=== PATIENT | male | born 1935 | race Caucasian/White ===

== ENCOUNTER 2023-05-17 10:47 | Day surgery (SDC) | payer MEDICARE, OTHER, SELFPAY ==
[2023-05-11 11:19] LABS: Hematocrit 40.4 % (40-54); Hemoglobin 13.1 g/dL (13.0-16.5); Mean Corp Hgb Conc 32.4 g/dL (32-36); Mean Corpuscular Hgb 31.6 pg (27.0-32.0); Mean Corpuscular Volume 97.6 fL (80-94); Mean Platelet Vol. 10.7 fl (6.2-12.0); Platelet Count 188 K/mm3 (150-450); RBC Distribution Width CV 13.2 % (11.6-14.6); RBC Distribution Width SD 46.7 fl (35.1-43.9); Red Blood Count 4.14 M/mm3 (4.6-6.2); White Blood Count 5.9 K/mm3 (4.4-11.0)
[2023-05-11 11:49] LABS: Anion Gap 2 (5-15); BUN 15 mg/dL (7-18); BUN/Creat Ratio 19.7 RATIO (10-20); Calcium,Total 8.9 mg/dL (8.5-10.1); Chloride 105 mmol/L (98-107); Creatinine, Serum 0.76 mg/dL (0.70-1.30); EST Glomerular Filtration Rate 103 mL/min (>60); Est Glom Filt Rate - Afr Amer 125 mL/min (>60); Glucose 91 mg/dL (74-106); Hemoglobin A1c 7.9 % (3.8-5.6); Potassium 3.9 mmol/L (3.5-5.1); Sodium Level 136 mmol/L (136-145)
--- OUTSIDE RECORDS SUMMARY | 2023-05-11 12:19 | XMS RPT_ITS | CCD ---
Author Name Unknown Address [id number] [place] [address] Organization [facility] Care Team Providers Care Overhead Line Worker Name Role Phone Kayla Spivey Unavailable Unavailable Sammy Howard Unavailable Unavailable Sammy Howard Unavailable Unavailable Kayla Spivey Unavailable Unavailable Kayla Spivey Unavailable Unavailable Kayla Spivey Unavailable Unavailable Deion Edward Unavailable Unavailable Melanie Xiao Unavailable Unavailable Kayla Spivey Primary Care Provider [phone] Kayla Spivey Unavailable Unavailable Unavailable Kayla Spivey MD Unavailable Kayla Spivey MD Unavailable Kayla Spivey MD Primary Care Provider [phone] KAYLA SPIVEY Primary Care Unavailable Kayla Spivey MD Primary Care Provider KAYLA SPIVEY Primary Care Unavailable JUAN REYES Attending Unava ilable CARLOS LONG Attending Unavail able KAYLA SPIVEY Referring Unavailable KAYLA SPIVEY Primary Care Unavailable CARLOS LONG Attending Unavail able KAYLA SPIVEY Primary Care Unavailable KAYLA SPIVEY Attending Unavailable KAYLA SPIVEY Referring Unavailable KAYLA SPIVEY Primary Care Unavailable JAZZ FLORENCE Attending Unavailable KAYLA SPIVEY Referring Unavailable KAYLA SPIVEY Primary Care Unavailable KAYLA SPIVEY Attending Unavailable KAYLA SPIVEY Primary Care Unavailable JAZZ FLORENCE Attending Unavailable KAYLA SPIVEY Primary Care Unavailable KAYLA SPIVEY Attending Unavailable KAYLA SPIVEY Primary Care Unavailable KAYLA SPIVEY Attending Unavailable KAYLA SPIVEY Primary Care Unavailable KAYLA SPIVEY Attending Unavailable KAYLA SPIVEY Primary Care Unavailable KAYLA SPIVEY Primary Care Unavailable KANU REYES Attending Unavailable KANU REYES Referring Unavailable KAYLA SPIVEY Primary Care Unavailable KAYLA SPIVEY Primary Care Unavailable MARILU QUAN Attending Unavailable KAYAL SPIVEY Referring Unavailable KAYLA SPIVEY Primary Care Unavailable CARLOS LONG Attending Unavail able CARLOS LONG Admitting Unavail able [facility] Unavailable Medications Current Medications Medication Drug Class(es) Dates Sig (Normalized) Sig (Original) amLODIPine 5 mg oral tablet (1 source) Dihydropyridine Calcium Channel [place] take 1 tablet by mouth once daily amLODIPine (NORVASC) 5 MG tablet Indications: hypertension Take 5 mg by mouth daily. ReasonsHypertension Active aspirin 81 mg delayed release oral tablet (20 sources) Nonsteroidal Anti-inflammatory Drug take 1 tablet by mouth once daily aspirin 81 mg EC tablet Take 1 tablet (81 mg) by mouth once daily. 0 Active Completed/Discontinued Medications Medication Drug Class(es) Dates Sig (Normalized) Sig (Original) azithromycin 250 mg oral tablet (2 sources) Macrolide Antimicrobial Start: 08-26-2021 End: 01-10-2022 Azithromycin 250 MG Oral Tablet TAKE 2 TABLETS ON DAY 1 THEN TAKE 1 TABLET A DAY FOR 4 DAYS. Quantity: 1 Refills: 0 Ordered: 26-Aug-2021 Kayla Spivey MD Start : 26-Aug-2021 End : 10-Jan-2022 Complete cholestyramine resin 4000 mg powder for oral suspension (2 sources) Bile Acid Sequestrant Start: 08-19-2019 Cholestyramine 4 GM Oral Packet MIX THE CONTENTS OF 1 POWDER PACKET WITH 2 TO 6 OZ OF NONCARBONATED BEVERAGE AND DRINK 3 TIMES DAILY. Quantity: 30 Refills: 5 Kayla Spivey MD Start : 19-Aug-2019 Active glimepiride 1 mg oral tablet (10 sources) Sulfonylurea Start: 05-11-2018 take 1 tablet by mouth once daily Glimepiride 1 MG Oral Tablet TAKE 1 TABLET BY MOUTH EVERY DAY Quantity: 90 Refills: 0 Kayla Spivey MD Start : 11-May-2018 Active ipratropium bromide 0.021 mg/actuat metered dose nasal spray (15 sources) Anticholinergic Start: 04-22-2020 take 2 spray(s) nasal route twice daily Ipratropium [place] 0.03 % Nasal Solution USE 2 SPRAYS IN EACH NOSTRIL TWICE DAILY. Quantity: 10 Refills: 3 Ordered: 22-Jul-2020 Kayla Spivey MD Start : 22-Apr-2020 Active Problems Active Problems Problem Classification Problem Date Documented Date Episodic/Chronic Abdominal pain (10 sources) Right upper quadrant pain; Translations: [Lower abdominal pain] Onset: 03-30-2023 03-30-2023 Episodic Anxiety disorders (4 sources) Anxiety; Translations: [Anxiety disorder, unspecified] Onset: 03-22-2023 03-22-2023 Chronic Biliary tract disease (1 source) Polyp of gallbladder; Translations: [Gallbladder polyp] Episodic Cancer of bladder (10 sources) Malignant tumor of urinary bladder; Translations: [Malignant neoplasm of bladder, unspecified] Onset: 04-14-2023 Resolved: 04-14-2023 04-14-2023 Chronic Cancer of bladder (2 sources) Personal history of malignant neoplasm of bladder; Translations: [Personal history of malignant neoplasm of bladder] Onset: 03-08-2023 Episodic Coronary atherosclerosis and other heart disease (20 sources) Coronary arteriosclerosis; Translations: [Coronary atherosclerosis of unspecified type of vessel, [place] or graft] Onset: 05-13-2022 07-11-2022 Chronic Delirium, dementia, and amnestic and other cognitive disorders (20 sources) Primary degenerative dementia of the Alzheimer type, presenile onset, uncomplicated; Translations: [Alzheimer's disease] Onset: 05-13-2022 07-11-2022 Chronic Past or Other Problems Problem Classification Problem Date Documented Da te Episodic/Chronic Cancer; other and unspecified primary (20 sources) H/O: malignant neoplasm; Translations: [Personal history of malignant neoplasm of bladder] Onset: 05-13-2022 Resolved: 06-19-2019 05-13-2022 Episodic Immunizations and screening for infectious disease (3 sources) Requires vaccination; Translations: [Encounter for immunization] Onset: 01-06-2023 07-11-2022 Episodic Other and unspecified benign neoplasm (20 sources) History of polyp of colon; Translations: [Personal history of colonic polyps] Onset: 05-13-2022 05-13-2022 Episodic Other connective tissue disease (4 sources) Recurrent falls ; Translations: [Recurrent falls] Other gastrointestinal disorders (20 sources) Loose stool; Translations: [Abnormal feces] Resolved: 08-19-2019 Episodic Other nervous system disorders (7 sources) Abnormal gait; Translations: [Unspecified abnormalities of gait and mobility] Onset: 09-24-2019 09-24-2019 Episodic Other nervous system disorders (1 source) Impaired cognition; Translations: [Mild cognitive impairment] Onset: 09-24-2019 09-24-2019 Episodic Other non-epithelial cancer of skin (20 sources) Malignant neoplasm of skin; Translations: [History of malignant neoplasm of skin] Onset: 05-13-2022 Resolved: 04-22-2020 05-13-2022 Episodic Other non-traumatic joint disorders (7 sources) Pain in right knee; Translations: [Pain in joint, lower leg] Onset: 01-06-2023 01-06-2023 Episodic Other non-traumatic joint disorders (4 sources) Pain in left knee; Translations: [Pain in left knee] Onset: 01-06-2023 Episodic Transient cerebral ischemia (20 sources) Transient global amnesia; Translations: [Transient global amnesia] Onset: 05-13-2022 Resolved: 01-06-2023 05-13-2022 Chronic Unclassified (10 sources) Onset: 07-11-2022 Resolved: 04-14-2023 07-11-2022 Unclassified (1 source) Dementia in other diseases classified elsewhere, moderate, without behavioral disturbance, psychotic disturbance, mood disturbance, and anxiety (CMS/HCC); Translations: [Dementia in other diseases classified elsewhere, moderate, without behavioral disturbance, psychotic disturbance, mood disturbance, and anxiety (CMS/HCC)] Onset: 04-14-2023 NEGATED: Highlighted row has not occurred!Residual codes; unclassified (20 sources) Disease Episodic Results Test Name Value Interpretation Reference Range Facil ity Vital Signs Date Time Vital Sign Value Performing Clinician Facility 04-14-2023 08:06-0500 Body height 177.8 cm Kayla Spivey MD Work Phone: [facility] 04-14-2023 08:06-0500 Body mass index (BMI) [Ratio] 21.11 kg/m2 Kayla Spivey MD Work Phone: [facility] 04-14-2023 08:06-0500 Body weight 66.72 kg Kayla Spivey MD Work Phone: [facility] 04-14-2023 08:06-0500 Diastolic blood pressure 58 mm[Hg] Kayla Spivey MD Work Phone: [facility] 04-14-2023 08:06-0500 Heart rate 68 /min Kayla Spivey MD Work Phone: [facility] 04-14-2023 08:06-0500 SaO2% (BldA) [Mass fraction] 98 % Kayla Spivey MD Work Phone: [facility] 04-14-2023 08:06-0500 Systolic blood pressure 110 mm[Hg] Kayla Spivey MD Work Phone: [facility] 04-13-2023 04:00-0500 Diastolic blood pressure 66 mm[Hg] Marilu Quan DO Work Phone: [phone] [place] [address] 04-13-2023 04:00-0500 Heart rate 80 /min Marilu Quan DO Work Phone: [phone] [place] [address] 04-13-2023 04:00-0500 Respiratory rate 18 /min Marilu Quan DO Work Phone: [facility] 04-13-2023 04:00-0500 SaO2% (BldA) [Mass fraction] 99 % Marilu Quan DO Work Phone: [facility] 04-13-2023 04:00-0500 Systolic blood pressure 144 mm[Hg] Marilu Quan DO Work Phone: [facility] 04-13-2023 03:00-0500 Body height 177.8 cm Marilu Quan DO Work Phone: [facility] 04-13-2023 03:00-0500 Body mass index (BMI) [Ratio] 21.38 kg/m2 Marilu Quan DO Work Phone: [facility] 04-13-2023 03:00-0500 Body temperature 97.59 [degF] Marilu Quan DO Work Phone: [facility] 04-13-2023 03:00-0500 Body weight 67.59 kg Marilu Quan DO Work Phone: [facility] 03-30-2023 11:21-0500 Body height 175.3 cm Carlos Long MD Work Phone: [facility] 03-30-2023 11:21-0500 Body mass index (BMI) [Ratio] 21.56 kg/m2 Carlos Long MD Work Phone: [facility] 03-30-2023 11:21-0500 Body weight 66.22 kg Carlos Long MD Work Phone: [facility] 03-30-2023 11:21-0500 Diastolic blood pressure 49 mm[Hg] Carlos Long MD Work Phone: [facility] 03-30-2023 11:21-0500 Heart rate 73 /min Carlos Long MD Work Phone: [facility] 03-30-2023 11:21-0500 SaO2% (BldA) [Mass fraction] 96 % Carlos Long MD Work Phone: [facility] 03-30-2023 11:21-0500 Systolic blood pressure 93 mm[Hg] Carlos Long MD Work Phone: [facility] 03-08-2023 08:22-0500 Body height 175.3 cm Kayla Spivey MD Work Phone: [facility] 03-08-2023 08:22-0500 Body mass index (BMI) [Ratio] 22.17 kg/m2 Kayla Spivey MD Work Phone: [facility] 03-08-2023 08:22-0500 Body weight 68.1 kg Kayla Spivey MD Work Phone: [facility] 03-08-2023 08:22-0500 Diastolic blood pressure 50 mm[Hg] Kayla Spivey MD Work Phone: [facility] 03-08-2023 08:22-0500 Heart rate 78 /min Kayla Spivey MD Work Phone: [facility] 03-08-2023 08:22-0500 Systolic blood pressure 110 mm[Hg] Kayla Spivey MD Work Phone: [facility] 01-06-2023 12:08-0400 Diastolic blood pressure 88 mm[Hg] Kayla Spivey MD Work Phone: [facility] 01-06-2023 12:08-0400 Systolic blood pressure 136 mm[Hg] Kayla Spivey MD Work Phone: [phone] [place] [address] 01-06-2023 10:28-0400 Body height 175.3 cm Kayla Spivey MD Work Phone: [phone] [place] [address] 01-06-2023 10:28-0400 Body mass index (BMI) [Ratio] 22.59 kg/m2 Kayla Spivey MD Work Phone: [facility] 01-06-2023 10:28-0400 Body weight 69.4 kg Kayla Spivey MD Work Phone: 5([phone])[phone] [place] [address] 01-06-2023 10:28-0400 Heart rate 72 /min Kayla Spivey MD Work Phone: [facility] 07-11-2022 08:24-0400 Diastolic blood pressure 68 mm[Hg] Kayla Spivey MD Work Phone: [facility] 07-11-2022 08:24-0400 Systolic blood pressure 138 mm[Hg] Kayla Spivey MD Work Phone: [facility] 07-11-2022 08:04-0400 Body height 175.3 cm Kayla Spivey MD Work Phone: [facility] 07-11-2022 08:04-0400 Body mass index (BMI) [Ratio] 23.52 kg/m2 Kayla Spivey MD Work Phone: [facility] 07-11-2022 08:04-0400 Body weight 72.26 kg Kayla Spivey MD Work Phone: [facility] 07-11-2022 08:04-0400 Heart rate 80 /min Kayla Spivey MD Work Phone: [facility] 01-10-2022 08:21-0400 Body height 175.26 cm Kayla Spivey Work Phone: [facility] Work Phone: 01-10-2022 08:21-0400 Body mass index (BMI) [Ratio] 22.93 kg/m2 Kayla Spivey Work Phone: [facility] Work Phone: 01-10-2022 08:21-0400 Body surface area Derived from formula 1.85 m2 Kayla Spivey Work Phone: [facility] Work Phone: 01-10-2022 08:21-0400 Body weight 70.42 kg Kayla Spivey Work Phone: [facility] Work Phone: 01-10-2022 08:21-0400 Diastolic blood pressure 56 mm[Hg] Kayla Spivey Work Phone: [facility] Work Phone: 01-10-2022 08:21-0400 Heart rate 74 /min Kayla Spivey Work Phone: [facility] Work Phone: 01-10-2022 08:21-0400 SaO2% (BldA) [Mass fraction] 97 % Kayla Spivey Work Phone: [facility] Work Phone: 01-10-2022 08:21-0400 Systolic blood pressure 122 mm[Hg] Kayla Spivey Work Phone: [facility] Work Phone: 07-12-2021 08:50-0400 Diastolic blood pressure 80 mm[Hg] Kayla Spivey Work Phone: [facility] Work Phone: 07-12-2021 08:50-0400 Systolic blood pressure 130 mm[Hg] Kayla Spivey Work Phone: [facility] Work Phone: 07-12-2021 08:23-0400 Body height 175.26 cm Kayla Spivey Work Phone: [facility] Work Phone: 07-12-2021 08:23-0400 Body mass index (BMI) [Ratio] 23.27 kg/m2 Kayla Spivey Work Phone: [facility] Work Phone: 07-12-2021 08:23-0400 Body surface area Derived from formula 1.87 m2 Kayla Spivey Work Phone: [facility] Work Phone: 07-12-2021 08:23-0400 Body weight 71.47 kg Kayla Spivey Work Phone: [facility] Work Phone: 07-12-2021 08:23-0400 Diastolic blood pressure 78 mm[Hg] Kayla Spivey Work Phone: [facility] Work Phone: 07-12-2021 08:23-0400 Heart rate 68 /min Kayla Spivey Work Phone: [facility] Work Phone: 07-12-2021 08:23-0400 Systolic blood pressure 152 mm[Hg] Kaylamatilde Spivey Work Phone: [facility] Work Phone: 01-18-2021 08:31-0400 Body height 175.26 cm Kayla Spivey Work Phone: [facility] Work Phone: 01-18-2021 08:31-0400 Body mass index (BMI) [Ratio] 22.68 kg/m2 Kayla Spivey Work Phone: [facility] Work Phone: 01-18-2021 08:31-0400 Body surface area Derived from formula 1.85 m2 Kayla Spivey Work Phone: [facility] Work Phone: 01-18-2021 08:31-0400 Body temperature 98 [degF] Kayla Spivey Work Phone: [facility] Work Phone: 01-18-2021 08:31-0400 Body weight 69.65 kg Kaylamatilde Spivey Work Phone: [facility] Work Phone: 01-18-2021 08:31-0400 Diastolic blood pressure 70 mm[Hg] Kayla Susu Spivey Work Phone: [facility] Work Phone: 01-18-2021 08:31-0400 Heart rate 76 /min Kayla Susu Spivey Work Phone: [facility] Work Phone: 01-18-2021 08:31-0400 Systolic blood pressure 126 mm[Hg] Kayla Spivey Work Phone: [facility] Work Phone: 11-14-2019 13:26-0400 BMI (Body Mass Index) 23.78 kg/m2 Melanie Benoitkeke [facility] Work Phone: 11-14-2019 13:26-0400 Body weight 73.03 kg Melanie Xiao [facility] Work Phone: 11-14-2019 13:26-0400 BP Diastolic 76 mm[Hg] Melanie Oviedoshelbikeke [facility] Work Phone: 11-14-2019 13:26-0400 BP Systolic 114 mm[Hg] Melanie Benoit [facility] Work Phone: 11-14-2019 13:26-0400 BSA (Body Surface Area) 1.88 m2 Melanie yCkeke -[facility] Work Phone: 11-14-2019 13:26-0400 Height 175.26 cm Melanie Xiao [facility] Work Phone: 11-14-2019 13:26-0400 Pulse (Heart Rate) 70 /min Melanie Xiao [facility] Work Phone: 10-24-2019 12:30-0400 BMI (Body Mass Index) 24.66 kg/m2 Deion Edward [facility] [facility] Work Phone: 10-24-2019 12:30-0400 Body Temperature 97.1 [degF] Deion Edward [facility] [facility] Work Phone: 10-24-2019 12:30-0400 Body weight 75.75 kg Deion Edward [facility] [facility] Work Phone: 10-24-2019 12:30-0400 BP Diastolic 56 mm[Hg] Deion Edward [facility] [facility] Work Phone: Encounters Encounter Date Encounter Type Care Provider Facility Start: 05-01-2023 End: 05-01-2023 ambulatory CARLOS CISNEROS [facility] Start: 04-14-2023 End: 04-14-2023 ambulatory KAYLA SPIVEY [facility] Start: 04-14-2023 End: 04-14-2023 Office outpatient visit 40 minutes Kayla Spivey MD Work Phone: [facility] Procedures Date Procedure Procedure Detail Performing Clinician Start: 04-13-2023 VITAL SIGNS KAYLA Garcia Start: 04-13-2023 aPTT in Blood by Coa gulation assay KAYLA SPIVEY Start: 04-13-2023 CBC W Auto Different ial panel - Blood KAYLA SPIVEY Start: 04-13-2023 Comprehensive metabo lic 2000 panel - Serum or Plasma KAYLA SPIVEY Start: 04-13-2023 Hemoglobin A1c/Hemoglobin.total in Blood KAYLA SPIVEY Start: 04-13-2023 PROTIME-INR KAYLA Garcia Start: 04-13-2023 LAVENDER TOP KAYLA MONTERROSO S Start: 04-13-2023 LIGHT BLUE TOP KAYLA JIN Start: 04-13-2023 PST TOP KAYLA MONTERROSO S Start: 04-13-2023 RAINBOW DRAW KAYLA Garcia Start: 04-13-2023 SST TOP KAYLA MONTERROSO S Start: 04-13-2023 Comprehensive metabo lic panel Marilu Quan DO Work Phone: Start: 04-11-2023 ECG 12-LEAD KAYLA Garcia Start: 04-11-2023 Ecg routine ecg w/le ast 12 lds trcg only w/o i&r Kanu Reyes DO Work Phone: Start: 04-10-2023 DISCHARGE PATIENT KAYLA SPIVEY Start: 02-06-2023 POINT OF CARE ULTRAS OUND NO CHARGE KAYLA SPIVEY Start: 02-06-2023 LARGE JOINT INJECTION/ARTHROCENTESIS KAYLA SPIVEY Start: 02-06-2023 AMB REFERRAL TO ORTH OPAEDIC SURGERY KAYLA SPIVEY Start: 02-06-2023 Arthrocentesis aspir &/inj major jt/bursa w/us Jazz Florence ACTIVE DIRECTORY SPECIALIST-FURNACE COMBUSTION ANALYST Work Phone: Start: 01-11-2023 XR KNEE 3 VIEWS BILATERAL KAYLA SPIVEY Start: 01-11-2023 Radiologic examinati on knee 3 views Kayla Spivey MD Work Phone: Start: 01-06-2023 INFLUENZA, HIGH-DOSE SEASONAL. QUADRIVALENT, PRESERVATIVE FREE KALYA SPIVEY Start: 01-06-2023 FOLLOW UP IN FAMILY MEDICINE KAYLA SPIVEY Start: 07-11-2022 PNEUMOCOCCAL CONJUGA TE VACCINE 20-VALENT IM KAYLA SPIVEY Start: 07-04-2022 Lipid 1996 panel - S veronika or Plasma Kayla Spivey MD Work Phone: Start: 10-29-2019 Colonoscopy Deion verma Start: 10-16-2019 Blood count complete auto&auto difrntl wbc Deion Edward Start: 10-16-2019 Comprehensive metabo lic 2000 panel Deion Cheyanne Start: 10-16-2019 Ct thorax w/o contra st material Deion Edward Start: 10-16-2019 Cyanocobalamin vitamin b-12 Deion Edward Start: 10-16-2019 Hemoglobin glycosylated a1c Deion Edward Start: 09-24-2019 Adult depression scr eening assessment Carlos Long MD Work Phone: Start: 03-20-2019 Basic metabolic 1998 panel - Serum or Plasma Kayla Spivey Start: 03-20-2019 Hemoglobin glycosylated a1c Kayla Spivey Start: 02-27-2019 Assay of thyroid sti mulating hormone tsh Kayla Spivey Start: 02-27-2019 CBC W Auto Different ial panel - Blood Kayla Spivey Start: 02-27-2019 Comprehensive metabo lic 2000 panel Kayla Spivey Start: 02-27-2019 Cyanocobalamin vitamin b-12 Kayla Spivey Start: 02-27-2019 Hemoglobin glycosylated a1c Kayla Spivey Start: 02-27-2019 Urnls dip stick/tabl et rgnt auto w/o microscopy Kayla Spivey Start: 04-28-2009 Colonoscopy Kayla jin Work Phone: Cardiac catheterization Karina Spivey Cataract surgery Kayla Spivey End: 04-28-2009 Colonoscopy Kayla Spivey Laparoscopic appendectomy Batsheva Spivey Plan of Treatment Date Care Activity Detail Author Start: 07-14-2023 End: 04-14-2024 CBC panel - Blood by Automated count CBC Lab Routine Type 2 diabetes mellitus with hyperglycemia, without long-term current use of insulin ([facility]) Expected: 07/14/2023 (Approximate), Expires: 04/14/2024 [facility] Work Phone: Immunizations Immunization Date Immunization Notes Care Provider Nilesh lin 01-06-2023 Flu vaccine, quadrivalent, high-dose, preservative free, age 65y+ (FLUZONE) Kayla Spivey MD Work Phone: [facility] Work Phone: 07-11-2022 Pneumococcal Conjuga te Pcv 20 Kayla Spivey MD Work Phone: [facility] 01-10-2022 Fluzone High-Dose Quadrivalent 0.7 ML Intramuscular Suspension Prefilled Syringe; Translations: [Fluzone High-Dose Quadrivalent 0.7 ML Intramuscular Suspension Prefilled Syringe] Kayla Spivey Work Phone: [facility] Work Phone: Payers Date Payer Category Payer Private Health Insurance AETNA S RC/AETNA [facility] /PPO INDEM [id number] 2007-Present [id number] 2007 Private Health Insurance [id number] 2007 Private Health Insurance [id number] 2001 Medicare MEDICARE MEDICAR E PART A & B [id number] 2001-Present CT [id number] 2001 Medicare [id number] 2001 Medicare [id number] 1936 Unknown [id number] .[id number] 1936 Unknown [id number] 1936 Unknown [id number] .1936 Unknown [id number] .1936 Unknown [id number] [id number] .1243 1936 Unknown [id number] .1243 1936 Unknown [id number] [id number] .1243 1936 Unknown [id number] [id number] .1243 1936 Unknown [id number] [id number] .1243 1936 Unknown [id number] [id number] .1243 1936 Unknown [id number] .1243 1936 Unknown [id number] [id number] .1242 1936 Unknown [id number] .1242 1936 Unknown [id number] .1242 1936 Unknown [id number] .1242 1936 Unknown [id number] Private Health Insurance xxx [id number] 3 Unknown [id number] Unknown Social History Date Type Detail Facility Start: 06-18-2014 End: 05-13-2022 Tobacco smoking status NHIS Former smoker [facility] Start: 06-18-2014 End: 07-11-2022 Cigarettes smoked current (pack per day) - Reported [facility] Start: 1935 Sex Assigned At Not on file [facility] End: 09-24-1979 History of tobacco use Current smoker [facility] Start: 09-24-2019 End: 05-13-2022 Tobacco use and exposure Never used [facility] Start: 09-24-2019 End: 03-30-2023 Alcohol intake Current non-drinker of alcohol (finding) [facility] End: 09-24-1979 History of tobacco use Cigarette Smoker [facility] Work Phone: Start: 07-11-2022 End: 04-14-2023 Alcohol intake Lifetime non-drinker (finding) [facility] Work Phone: Start: 05-25-2022 End: 07-11-2022 Tobacco use panel [facility] Work Phone: Start: 07-01-2022 End: 03-20-2023 Exposure to SARS-CoV-2 (event) Not sure [facility] Adult Depression Screening Assessment 0 [facility] Start: 03-31-2023 End: 04-13-2023 Exposure to SARS-CoV-2 (event) Yes [facility] NEGATED: Highlighted row - - [facility] Work Phone: Medical Equipment Procedure Code Equipment Code Equipment Origin al Text Equipment Identifier Dates Blood Glucose Te st In Vitro Strip TEST ONCE DAILY. Quantity: 100 Refills: 3 Kayla Spivey MD Start : 26-Apr-2019 Active Start: 04-26-2019 Contour Test In Vitro Strip Quantity: 50 Refills: 0 DO Start : 11-May-2018 Active Start: 05-11-2018 Lancets USE DIRECTED. Quantity: 1 Refills: 5 Kayla Spivey MD Start : 08-May-2019 Active 100 [address] Start: 05-08-[address] In Vitro Strip TEST ONCE DAILY. Quantity: 100 Refills: 3 Kayla Spivey MD Start : 26-Apr-2019 Active Start: 04-26-2019 Contour Test In Vitro Strip Quantity: 50 Refills: 0 DO Start : 11-May-2018 Active Start: 05-11-2018 Lancets USE DIRECTED. Quantity: 1 Refills: 5 Kayla Spivey MD Start : 08-May-2019 Active 100 Unit Box Start: 05-08-[address] In Vitro Strip TEST ONCE DAILY. Quantity: 100 Refills: 3 Kayla Spivey MD Start : 26-Apr-2019 Active Start: 04-26-2019 Contour Test In Vitro Strip Quantity: 50 Refills: 0 DO Start : 11-May-2018 Active Start: 05-11-2018 Lancets USE DIRECTED. Quantity: 1 Refills: 5 Kayla Spivey MD Start : 08-May-2019 Active 100 Unit Box Start: 05-08-[address] In Vitro Strip TEST ONCE DAILY. Quantity: 100 Refills: 3 Kayla Spivey MD Start : 26-Apr-2019 Active Start: 04-26-2019 Contour Test In Vitro Strip Quantity: 50 Refills: 0 DO Start : 11-May-2018 Active Start: 05-11-2018 Lancets USE DIRECTED. Quantity: 1 Refills: 5 Kayla Spivey MD Start : 08-May-2019 Active 100 Unit Box Start: 05-08-[address] In Vitro Strip TEST ONCE DAILY. Quantity: 100 Refills: 3 Kayla Spivey MD Start : 26-Apr-2019 Active Start: 04-26-2019 Contour Test In Vitro Strip Quantity: 50 Refills: 0 Start : 11-May-2018 Active Start: 05-11-2018 Lancets USE DIRECTED. Quantity: 1 Refills: 5 Kayla Spivey MD Start : 08-May-2019 Active 100 Unit Box Start: 05-08-[address] In Vitro Strip TEST ONCE DAILY. Quantity: 100 Refills: 3 Kayla Spivey MD Start : 26-Apr-2019 Active Start: 04-26-2019 Contour Test In Vitro Strip use as directed to check blood sugar 1 time daily Quantity: 100 Refills: 0 Kayla Spivey MD Start : 11-May-2018 Active Start: 05-11-2018 Lancets USE DIRECTED. Quantity: 1 Refills: 5 Kayla Spivey MD Start : 08-May-2019 Active 100 Unit Box Start: 05-08-[address] In Vitro Strip TEST ONCE DAILY. Quantity: 100 Refills: 3 Kayla Spivey MD Start : 26-Apr-2019 Active Start: 04-26-2019 Contour Test In Vitro Strip Quantity: 50 Refills: 0 DO Start : 11-May-2018 Active Start: 05-11-2018 1 (one) time eac h day. [id number] Start: 04-26-2019 USE 1 STRIP Waqar y TO CHECK FBS [id number] Start: 11-21-2022 End: 03-13-2023 1 strip once daily. [id number] Start : 03-13-2023 End: 03-12-2024 1 each once daily. [id number] Start: 03-13-2023 End: 03-12-2024 Functional Status Date Assessment Result Facility NEGATED: Highlighted row Functional performance Functional status health issues are not documented Disease [facility] Work Phone: Mental Status Date Assessment Result Facility NEGATED: Highlighted row Cognitive function [Interpretation] Cognitive status health issues are not documented Disease [facility] Work Phone: Clinical Notes 07-11-2022 to 04-14-2023 Cierra Whitfield MA - 04/14/2023 8:00 AM ESTJuzandra Spivey MD - 04/14/2023 8:00 AM ESTPatient InstructionsMarilu Quan, DO - 04/13/2023 2:56 AM Jonatan Quan, DO - 04/13/2023 2:56 AM EST Note Date & Type Note Facility 04-14-2023 History of Present illness Narrative Subjective Patient ID: Aron Longo is a 87 y.o. male who presents for check up HPI Review of Systems Objective There were no vitals taken for this visit. Physical Exam Assessment/Plan Patient presents for periodic surveillance of chronic medical problems. Subjective Aron Longo is a 87 y.o. male who presents for No chief complaint on file.. HPI Follow up multiple issues. Has been in ER for covid, on paxlovid, feeling better. Holding flomax and zocor due to interactions with paxlovid. Has had improved urinary incontinence off the flomax. Has appt with urology pending soon to discuss. Diarrhea, still an issue, has an appt with Dr Pizano for colonoscopy later this month. Was in Er for rectal bleeding since last visit felt to be hemorrhoidal. Dm, glucose this morning 114. A1c is due, will add to labs from ER yesterday. Htn, lower reading. He is interested in getting off some medicaiton. Recommend we stop the hydrochlorothiazide and see how his bp goes Dementia, on double therapy, worsening gradually Here with daughter who helps with meds , history. Review of Systems All other systems reviewed and are negative. . Objective Visit Vitals BP 110/58 (BP Location: Left arm, Patient Position: Sitting, BP Cuff Size: Adult) Pulse 68 Physical Exam Vitals and nursing note reviewed. Constitutional: General: He is not in acute distress. Appearance: Normal appearance. He is not toxic-appearing. HENT: Head: Normocephalic and atraumatic. Cardiovascular: Rate and Rhythm: Normal rate and regular rhythm. Heart sounds: No murmur heard. Pulmonary: Effort: Pulmonary effort is normal. Breath sounds: Normal breath sounds. Musculoskeletal: Cervical back: Neck supple. No rigidity. Comments: Skin: General: Skin is warm and dry. Neurological: General: No focal deficit present. Mental Status: He is alert. Psychiatric: Mood and Affect: Mood normal. Behavior: Behavior normal. Assessment/Plan Problem List Items Addressed This Visit Diabetes mellitus with hyperglycemia, without long-term current use of insulin (CMS/HCC) Relevant Orders Hemoglobin A1C CBC Comprehensive Metabolic Panel Lipid Panel TSH with reflex to Free T4 if abnormal Albumin , Urine Random Hemoglobin A1C Vitamin B12 Hypertension RESOLVED: Malignant neoplasm of urinary bladder, unspecified site (CMS/HCC) Moderate late onset Alzheimer's dementia without behavioral disturbance, psychotic disturbance, mood disturbance, or anxiety (CMS/HCC) - Primary Relevant Medications memantine (Namenda) 10 mg tablet Kayla Spivey MD Patient was identified as a fall risk. Risk prevention instructions provided. documented in this encounter [facility] Work Phone: 04-14-2023 Instructions Kayla Spivey MD - 04/14/2023 8:00 AM EST Stop hydrochlorothiazide. Check blood pressure once or twice week. Keep appts with specialists. Follow up 3 mos, labs prior. Josette added lab, hba1c, for your diabetes to the blood from the ER, will call results. Ways to Help Prevent Falls at Home Quick Tips ? Ask for help if you need it. Most people want to help! ? Get up slowly after sitting or laying down ? Wear a medical alert device or keep cell phone in your pocket ? Use night lights, especially areas near a bathroom ? Keep the items you use often within reach on a small stool or end table ? Use an assistive device such as walker or cane, as directed by provider/physical therapy ? Use a non-slip mat and grab bars in your bathroom. Look for home health sections for best options Other Areas to Focus On ? Exercise and nutrition: Regular exercise or taking a falls prevention class are great ways improve strength and balance. Don t forget to stay hydrated and bring a snack! ? Medicine side effects: Some medicines can make you sleepy or dizzy, which could cause a fall. Ask your healthcare provider about the side effects your medicines could cause. Be sure to let them know if you take any vitamins or supplements as well. ? Tripping hazards: Remove items you could trip on, such as loose mats, rugs, cords, and clutter. Wear closed toe shoes with rubber soles. ? Health and wellness: Get regular checkups with your healthcare provider, plus routine vision and hearing screenings. Talk with your healthcare provider about: o Your medicines and the possible side effects - bring them in a bag if that is easier! o Problems with balance or feeling dizzy o Ways to promote bone health, such as Vitamin D and calcium supplements o Questions or concerns about falling *Ask your healthcare team if you have questions [facility] 2021 documented in this encounter [facility] Work Phone: 04-13-2023 Emergency department Note HPI Chief Complaint Patient presents with Rectal Bleeding Pt is c/o rectal bleeding. Pt has bright red blood, Pt stated he might have hemorrhoids. 87-year-old male presents with hematochezia. Patient was diagnosed several days ago here with COVID. Patient was not able to take any medication for that because it would interact with the other medicine he is on. Patient states he had a bowel movement tonight and developed bleeding afterward. Patient is not actively bleeding at present. Patient denies any abdominal pain associated with presenting complaint. Patient denies any nausea or vomiting. Patient does have loose stools which is chronic. Patient will be given Anusol HC suppository. He will also be given 10 mEq of oral potassium. I did speak to the patient and the person with him. Patient will be discharged. History provided by: Patient Mayra Coma Scale Score: 15 Patient History Past Medical History: Diagnosis Date Atherosclerotic heart disease of [place] coronary artery without angina pectoris 01/10/2022 Coronary arteriosclerosis Chronic diarrhea 05/13/2022 Essential (primary) hypertension 07/12/2021 Hypertension Other fecal abnormalities 08/19/2019 Loose stools Personal history of malignant neoplasm of bladder History of malignant neoplasm of bladder Personal history of other malignant neoplasm of skin History of malignant neoplasm of skin Pure hypercholesterolemia, unspecified 07/12/2021 Hypercholesteremia Transient global amnesia 08/19/2019 Transient global amnesia Transient global amnesia 05/13/2022 Unspecified macular degeneration Macular degeneration Past Surgical History: Procedure Laterality Date OTHER SURGICAL HISTORY 02/26/2019 Colonoscopy OTHER SURGICAL HISTORY 02/26/2019 Cataract surgery OTHER SURGICAL HISTORY 02/26/2019 Cardiac catheterization OTHER SURGICAL HISTORY 02/26/2019 Appendectomy laparoscopic Family History Problem Relation Name Age of Onset Other (MALIGNANT NEOPLASM) Brother Coronary artery disease Other Hyperlipidemia Other Hypertension Other Social History Tobacco Use Smoking status: Former Types: Cigarettes Smokeless tobacco: Never Substance Use Topics Alcohol use: Never Drug use: Never Physical Exam ED Triage Vitals [04/13/23 0300] Temp Heart Rate Resp BP 36.4 C (97.6 F) 81 17 167/73 SpO2 Temp Source Heart Rate Source Patient Position 99 % Tympanic Monitor Sitting BP Location FiO2 (%) Left arm -- Physical Exam Vitals and nursing note reviewed. Constitutional: General: He is not in acute distress. Appearance: He is well-developed. HENT: Head: Normocephalic and atraumatic. Eyes: Conjunctiva/sclera: Conjunctivae normal. Cardiovascular: Rate and Rhythm: Normal rate and regular rhythm. Heart sounds: No murmur heard. Pulmonary: Effort: Pulmonary effort is normal. No respiratory distress. Breath sounds: Normal breath sounds. Abdominal: Palpations: Abdomen is soft. Tenderness: There is no abdominal tenderness. Comments: Multiple nonthrombosed external hemorrhoids. Musculoskeletal: General: No swelling. Cervical back: Neck supple. Skin: General: Skin is warm and dry. Capillary Refill: Capillary refill takes less than 2 seconds. Neurological: Mental Status: He is alert. Psychiatric: Mood and Affect: Mood normal. Labs Reviewed CBC WITH AUTO DIFFERENTIAL - Abnormal Result Value WBC 3.9 (*) nRBC 0.0 RBC 4.35 (*) Hemoglobin 14.4 Hematocrit 41.7 MCV 96 MCH 33.1 MCHC 34.5 RDW 12.3 Platelets 171 Neutrophils % 61.0 Immature Granulocytes %, Automated 0.5 Lymphocytes % 24.1 Monocytes % 12.6 Eosinophils % 1.3 Basophils % 0.5 Neutrophils Absolute 2.38 Immature Granulocytes Absolute, Automated 0.02 Lymphocytes Absolute 0.94 Monocytes Absolute 0.49 Eosinophils Absolute 0.05 Basophils Absolute 0.02 COMPREHENSIVE METABOLIC PANEL - Abnormal Glucose 181 (*) Sodium 137 Potassium 3.3 (*) Chloride 101 Bicarbonate 28 Anion Gap 11 Urea Nitrogen 23 Creatinine 0.66 eGFR >90 Calcium 8.6 Albumin 3.8 Alkaline Phosphatase 53 Total Protein 7.2 AST 17 Bilirubin, Total 0.4 ALT 20 APTT - Normal aPTT 30 Narrative: The APTT is no longer used for monitoring Unfractionated Heparin Therapy. For monitoring Heparin Therapy, use the Heparin Assay. PROTIME-INR - Normal Protime 12.1 INR 1.1 [facility] ED Course & MDM Diagnoses as of 04/13/23444 Bleeding external hemorrhoids Medical Decision Making Take medication as prescribed. Sitz bath's. [place] diet. Follow-up with family medical doctor in 2 to 3 days if symptoms worsen return to ED. Procedure Procedures Marilu Quan DO 04/13/23436 Marilu Quan DO 04/13/23445 documented in this encounter [facility] Work Phone: 04-13-2023 Physician Emergency department Note HPI Chief Complaint Patient presents with Rectal Bleeding Pt is c/o rectal bleeding. Pt has bright red blood, Pt stated he might have hemorrhoids. 87-year-old male presents with hematochezia. Patient was diagnosed several days ago here with COVID. Patient was not able to take any medication for that because it would interact with the other medicine he is on. Patient states he had a bowel movement tonight and developed bleeding afterward. Patient is not actively bleeding at present. Patient denies any abdominal pain associated with presenting complaint. Patient denies any nausea or vomiting. Patient does have loose stools which is chronic. Patient will be given Anusol HC suppository. He will also be given 10 mEq of oral potassium. I did speak to the patient and the person with him. Patient will be discharged. History provided by: Patient Mayra Coma Scale Score: 15 Patient History Past Medical History: Diagnosis Date Atherosclerotic heart disease of [place] coronary artery without angina pectoris 01/10/2022 Coronary arteriosclerosis Chronic diarrhea 05/13/2022 Essential (primary) hypertension 07/12/2021 Hypertension Other fecal abnormalities 08/19/2019 Loose stools Personal history of malignant neoplasm of bladder History of malignant neoplasm of bladder Personal history of other malignant neoplasm of skin History of malignant neoplasm of skin Pure hypercholesterolemia, unspecified 07/12/2021 Hypercholesteremia Transient global amnesia 08/19/2019 Transient global amnesia Transient global amnesia 05/13/2022 Unspecified macular degeneration Macular degeneration Past Surgical History: Procedure Laterality Date OTHER SURGICAL HISTORY 02/26/2019 Colonoscopy OTHER SURGICAL HISTORY 02/26/2019 Cataract surgery OTHER SURGICAL HISTORY 02/26/2019 Cardiac catheterization OTHER SURGICAL HISTORY 02/26/2019 Appendectomy laparoscopic Family History Problem Relation Name Age of Onset Other (MALIGNANT NEOPLASM) Brother Coronary artery disease Other Hyperlipidemia Other Hypertension Other Social History Tobacco Use Smoking status: Former Types: Cigarettes Smokeless tobacco: Never Substance Use Topics Alcohol use: Never Drug use: Never Physical Exam ED Triage Vitals [04/13/23 0300] Temp Heart Rate Resp BP 36.4 C (97.6 F) 81 17 167/73 SpO2 Temp Source Heart Rate Source Patient Position 99 % Tympanic Monitor Sitting BP Location FiO2 (%) Left arm -- Physical Exam Vitals and nursing note reviewed. Constitutional: General: He is not in acute distress. Appearance: He is well-developed. HENT: Head: Normocephalic and atraumatic. Eyes: Conjunctiva/sclera: Conjunctivae normal. Cardiovascular: Rate and Rhythm: Normal rate and regular rhythm. Heart sounds: No murmur heard. Pulmonary: Effort: Pulmonary effort is normal. No respiratory distress. Breath sounds: Normal breath sounds. Abdominal: Palpations: Abdomen is soft. Tenderness: There is no abdominal tenderness. Comments: Multiple nonthrombosed external hemorrhoids. Musculoskeletal: General: No swelling. Cervical back: Neck supple. Skin: General: Skin is warm and dry. Capillary Refill: Capillary refill takes less than 2 seconds. Neurological: Mental Status: He is alert. Psychiatric: Mood and Affect: Mood normal. Labs Reviewed CBC WITH AUTO DIFFERENTIAL - Abnormal Result Value WBC 3.9 (*) nRBC 0.0 RBC 4.35 (*) Hemoglobin 14.4 Hematocrit 41.7 MCV 96 MCH 33.1 MCHC 34.5 RDW 12.3 Platelets 171 Neutrophils % 61.0 Immature Granulocytes %, Automated 0.5 Lymphocytes % 24.1 Monocytes % 12.6 Eosinophils % 1.3 Basophils % 0.5 Neutrophils Absolute 2.38 Immature Granulocytes Absolute, Automated 0.02 Lymphocytes Absolute 0.94 Monocytes Absolute 0.49 Eosinophils Absolute 0.05 Basophils Absolute 0.02 COMPREHENSIVE METABOLIC PANEL - Abnormal Glucose 181 (*) Sodium 137 Potassium 3.3 (*) Chloride 101 Bicarbonate 28 Anion Gap 11 Urea Nitrogen 23 Creatinine 0.66 eGFR >90 Calcium 8.6 Albumin 3.8 Alkaline Phosphatase 53 Total Protein 7.2 AST 17 Bilirubin, Total 0.4 ALT 20 APTT - Normal aPTT 30 Narrative: The APTT is no longer used for monitoring Unfractionated Heparin Therapy. For monitoring Heparin Therapy, use the Heparin Assay. PROTIME-INR - Normal Protime 12.1 INR 1.1 [facility] ED Course & MDM Diagnoses as of 04/13/23 044 Bleeding external hemorrhoids Medical Decision Making Take medication as prescribed. Sitz bath's. [place] diet. Follow-up with family medical doctor in 2 to 3 days if symptoms worsen return to ED. Procedure Procedures Marilu Quan DO 04/13/23 899 Marilu Quan DO 04/13/23 356 [facility] Work Phone: 03-30-2023 History of Present illness Narrative Aron Longo 87 y.o. 1935 male Reason for Consult: Chronic diarrhea HPI: 87-year-old male with history of hypertension, hyperlipidemia, coronary artery disease, diabetes mellitus type 2, bladder cancer was referred to me for evaluation of chronic diarrhea. Patient says he has diarrhea off and on for long time as she with lower abdominal pain sometimes sharp sometimes crampy but no blood in the stool. Denies any recent weight loss he had colonoscopy 3 years ago and found to have adenomatous colon polyp. He is taking Imodium with some relief along with high-fiber diet Past Medical History: Past Medical History: Diagnosis Date Cancer (HCC) bladder cancer Coronary artery disease Diabetes mellitus (HCC) EKG, abnormal at doctors office prior to colonoscopy Heart disease Hyperlipidemia Hypertension Stable angina Family History Problem Relation Age of Onset Cancer Mother Cancer Father Diabetes Sister Cancer Sister Heart disease Brother Stroke Brother Diabetes Brother Heart failure Brother Cancer Brother Dementia Brother Aneurysm Neg Hx Seizures Neg Hx Surgical History & Procedures: Past Surgical History: Procedure Laterality Date APPENDECTOMY BLADDER SURGERY for bladder cancer. X2 surgery CORONARY ANGIOPLASTY CT COLONOSCOPY 04/24/2022 CT COLONOSCOPY HC LEFT HEART CATH N/A 06/17/2014 Procedure: Left Heart Cath; Surgeon: Sean Nicole MD; Location: [facility]; Service: Cardiovascular Social History: Social History Socioeconomic History Marital status: Tobacco Use Smoking status: Former Packs/day: 1.00 Years: 10.00 Additional pack years: 0.00 Total pack years: 10.00 Types: Cigarettes Quit date: 09/24/1979 Years since quittin.5 Smokeless tobacco: Never Vaping Use Vaping Use: Never used Substance and Sexual Activity Alcohol use: No Drug use: No Current Medications: Current Outpatient Medications Medication Sig Dispense Refill aspirin 81 MG EC tablet Take 1 (one) tablet (81 mg total) by mouth daily . candesartan (ATACAND) 32 MG tablet Take 1 (one) tablet (32 mg total) by mouth daily . cyanocobalamin (B-12) 1000 MCG tablet Take 1 (one) tablet (1,000 mcg total) by mouth daily . donepeziL (ARICEPT) 10 MG tablet Take 1 (one) tablet (10 mg total) by mouth daily Start after a month on Aricept 5 mg po daily. . 90 tablet 5 donepeziL (ARICEPT) 5 MG tablet Take 1 (one) tablet (5 mg total) by mouth daily After a month, increase to 10 mg daily. . 30 tablet 0 empagliflozin (JARDIANCE ORAL) Take by mouth . glimepiride (AMARYL) 1 MG tablet Take 1 (one) tablet (1 mg total) by mouth every morning before breakfast . hydrochlorothiazide (HYDRODIURIL) 25 MG tablet Take 1 (one) tablet (25 mg total) by mouth daily . metoprolol tartrate (LOPRESSOR) 50 MG tablet Take 1.5 (one and a half) tablets (75 mg total) by mouth 2 (two) times a day Pt takes one and one half tablet two times daily for a total of 75 mg two times a day . omeprazole (PRILOSEC) 20 MG capsule Take 1 (one) capsule (20 mg total) by mouth daily . simvastatin (ZOCOR) 20 MG tablet Take 1 (one) tablet (20 mg total) by mouth daily . tamsulosin (Flomax) 0.4 mg capsule Take 1 (one) capsule (0.4 mg total) by mouth daily . 30 capsule 0 vitamin E 400 UNIT capsule Take 1 (one) capsule (400 Units total) by mouth 2 (two) times a day . metFORMIN (GLUCOPHAGE) 1000 MG tablet Take 1 (one) tablet (1,000 mg total) by mouth Takes one tablet in the morning, half a tablet at lunch, and one tablet in the evening. . No current facility-administered medications for this visit. Review of Systems Constitutional: Negative for appetite change and unexpected weight change. HENT: Negative for voice change. Respiratory: Negative for cough, choking and shortness of breath. Cardiovascular: Negative for chest pain and leg swelling. Gastrointestinal: Positive for abdominal pain and diarrhea. Negative for anal bleeding, blood in stool, constipation, nausea, rectal pain and vomiting. Genitourinary: Negative for hematuria. Musculoskeletal: Negative for arthralgias and joint swelling. Skin: Negative for pallor. Neurological: Negative for dizziness, tremors and weakness. Hematological: Negative for adenopathy. Does not bruise/bleed easily. Psychiatric/Behavioral: Negative for confusion. Physical Exam Constitutional: Appearance: Normal appearance. Eyes: Pupils: Pupils are equal, round, and reactive to light. Cardiovascular: Pulses: Normal pulses. Heart sounds: Normal heart sounds. Pulmonary: Breath sounds: Normal breath sounds. Abdominal: General: Bowel sounds are normal. Palpations: Abdomen is soft. There is no mass. Tenderness: There is no abdominal tenderness. Skin: Coloration: Skin is not jaundiced. Neurological: General: No focal deficit present. Mental Status: He is alert and oriented to person, place, and time. Psychiatric: Behavior: Behavior normal. Admission on 03/02/2023, Discharged on 03/02/2023 Component Date Value Ref Range Status WBC 03/02/2023 6.05 4.50 - 11.00 K/mcL Final RBC 03/02/2023 4.31 (L) 4.50 - 5.90 M/mcL Final Hemoglobin 03/02/2023 14.0 13.5 - 17.5 g/dL Final Hematocrit 03/02/2023 42.2 41.0 - 53.0 % Final MCV 03/02/2023 97.9 80.0 - 100.0 fL Final MCH 03/02/2023 32.5 26.0 - 34.0 pg Final MCHC 03/02/2023 33.2 31.0 - 37.0 g/dL Final RDW - CV 03/02/2023 12.3 11.6 - 14.8 % Final Platelets 03/02/2023 187 150 - 400 K/mcL Final MPV 03/02/2023 11.2 9.4 - 12.4 fL Final Neutrophils 03/02/2023 59.1 % Final Lymphocytes 03/02/2023 27.4 % Final Monocytes 03/02/2023 11.1 % Final Eosinophils 03/02/2023 1.7 % Final Basophils 03/02/2023 0.5 % Final IG Percent 03/02/2023 0.20 % Final The IG parameter is the percentage of metamyelocytes, myelocytes and promyelocytes. An immature granulocyte count (IG) of 1% or more suggests the possibility of infection, an IG count of 3% is very likely related to an infection. Neutrophils Abs 03/02/2023 3.58 1.70 - 7.00 K/mcL Final Lymphocytes Abs 03/02/2023 1.66 0.90 - 4.00 K/mcL Final Monocytes Abs 03/02/2023 0.67 0.30 - 0.90 K/mcL Final Eosinophils Abs 03/02/2023 0.10 0.00 - 0.50 K/mcL Final Basophils Abs 03/02/2023 0.03 0.00 - 0.30 K/mcL Final IG Absolute 03/02/2023 0.01 0.00 - 0.30 K/mcL Final Spec Grav, UA 03/02/2023 1.015 1.005 - 1.025 Final pH, UA 03/02/2023 5.0 5.0 - 7.0 Final Protein, UA 03/02/2023 Negative Negative mg/dL Final Glucose, UA 03/02/2023 >=1000 (A) Negative mg/dL Final Ketones, UA 03/02/2023 Negative Negative mg/dL Final Bilirubin, UA 03/02/2023 Negative Negative Final Urobilinogen, UA 03/02/2023 0.2 <2.0 mg/dL Final Blood, UA 03/02/2023 Trace-intact (A) Negative Final Nitrite, UA 03/02/2023 Negative Negative Final Leukocyte Esterase, UA 03/02/2023 Negative Negative Final Glucose 03/02/2023 279 (H) 65 - 99 mg/dL Final BUN 03/02/2023 35 (H) 8 - 25 mg/dL Final Creatinine 03/02/2023 0.93 0.80 - 1.30 mg/dL Final GFR 03/02/2023 80 >=60 mL/min/1.73 m2 Final Estimated GFR was calculated using the 2020 CKD-EPI creatinine equation. Sodium 03/02/2023 142 135 - 145 mmol/L Final Potassium 03/02/2023 3.6 3.5 - 5.1 mmol/L Final Chloride 03/02/2023 105 98 - 108 mmol/L Final TCO2 03/02/2023 25 21 - 32 mmol/L Final Ionized Calcium 03/02/2023 4.6 4.5 - 5.3 mg/dL Final Albumin 03/02/2023 4.1 3.2 - 5.2 g/dL Final Alkaline Phosphatase 03/02/2023 65 40 - 150 U/L Final ALT (SGPT) 03/02/2023 32 0 - 40 U/L Final AST (SGOT) 03/02/2023 23 0 - 45 U/L Final Bilirubin, Total 03/02/2023 0.6 0.0 - 1.3 mg/dL Final Total Protein 03/02/2023 7.3 6.0 - 8.0 g/dL Final Amylase 03/02/2023 87 25 - 115 U/L Final GGT 03/02/2023 15 11 - 51 U/L Final Assessment & Plan: 87-year-old male with history of chronic diarrhea associate with lower abdominal pain could be IBS or it may be microcytic colitis. He has a history of colon polyp and last colonoscopy was 3 years ago he will need colonoscopy and possible biopsies to rule out microscopic colitis. He is scheduled for colonoscopy on May 01 at 9 AM at [facility] [place]. In the meantime I asked him to continue take Metamucil and Imodium on as needed basis. Carlos Long MD documented in this encounter [facility] 03-20-2023 Evaluation + Plan note Associated Problem(s): Primary osteoarthritis of both knees We reviewed conservative measures for knee OA symptom control. Patient to continue to take Tylenol per package directions, diclofenac gel up to 4 times daily. We reviewed bracing and wrapping for aggravating activities. Reviewed rest and elevation. Continue activity as well as stretching and exercises as tolerated. Reviewed conservative options for symptom control. Plan will be to follow-up here on as needed basis for any returning or new concerns or symptoms. Patient in agreement with plan of care. This note was generated using [employer] software. It may contain errors in wording, punctuation or spelling. [facility] Work Phone: 03-20-2023 Miscellaneous Notes Associated Problem(s): Primary osteoarthritis of both knees We reviewed conservative measures for knee OA symptom control. Patient to continue to take Tylenol per package directions, diclofenac gel up to 4 times daily. We reviewed bracing and wrapping for aggravating activities. Reviewed rest and elevation. Continue activity as well as stretching and exercises as tolerated. Reviewed conservative options for symptom control. Plan will be to follow-up here on as needed basis for any returning or new concerns or symptoms. Patient in agreement with plan of care. This note was generated using [employer] software. It may contain errors in wording, punctuation or spelling. documented in this encounter [facility] Work Phone: 03-20-2023 History of Present illness Narrative Subjective Patient ID: Aron Longo is a 87 y.o. male. Chief Complaint: Follow-up of the Left Knee (Patient had injection on 02/09/2023.) Aron is a pleasant 87-year-old gentleman accompanied by family for follow-up visit of bilateral knee pain. Patient states the left knee is more symptomatic than the right. Patient states his knee became swollen after working on his car this spring. Patient received a cortisone injection at last visit and states his symptoms have been completely resolved since. He has resumed his normal activities and is tolerating well. Not taking any OTC meds for symptom control. Denies any new injuries or falls. Left Knee Review of Systems Constitutional: Negative. HENT: Negative. Respiratory: Negative. Cardiovascular: Negative. Endocrine: Negative. Musculoskeletal: Positive for arthralgias. Skin: Negative. Neurological: Negative. Hematological: Negative. Psychiatric/Behavioral: Negative. Objective Right Knee Exam Muscle Strength The patient has normal right knee strength. Tenderness Right knee tenderness location: No tenderness on exam. Range of Motion Extension: normal Flexion: 120 Tests Brittnee: Medial - negative Lateral - negative Varus: negative Valgus: negative Drawer: Anterior - negative Posterior - negative Other Erythema: absent Sensation: normal Pulse: present Swelling: none Comments: Full ROM of distal joints with no sx aggravation distal motor and sensory intact, cap refill at 2 seconds. Left Knee Exam Muscle Strength The patient has normal left knee strength. Tenderness Left knee tenderness location: none. Range of Motion Extension: normal Flexion: 120 Tests Brittnee: Medial - negative Lateral - negative Varus: negative Valgus: negative Drawer: Anterior - negative Posterior - negative Other Erythema: absent Sensation: normal Pulse: present Swelling: none Comments: Full ROM of distal joints with no sx aggravation distal motor and sensory intact, cap refill at 2 seconds. Image Results: XR knee 3 views bilateral Interpreted By: Lorenzo Head, STUDY: XR KNEE 3 VIEWS BILATERAL; 01/11/2023 8:58 am INDICATION: Signs/Symptoms:bilateral knee pain. COMPARISON: none ACCESSION NUMBER(S): [id number] ORDERING CLINICIAN: KAYLA SPIVEY FINDINGS: Three views bilateral knees. Right knee Mild tricompartment productive degenerative changes. Degenerative changes predominantly involving the medial compartment. No fracture or dislocation. No osseous lesion. Trace effusion. Small quadriceps enthesophyte of the patella. Bipartite patella is noted with some [id number] degenerative changes across the syndesmosis. Left knee Moderate tricompartment productive degenerative changes. No fracture or dislocation. No osseous lesion. Trace effusion. IMPRESSION Mild right and moderate left knee osteoarthrosis. 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 MACRO none Signed by: Lorenzo Head 01/16/2023 10:05 AM Dictation workstation: [id number] Patient ID: Aron Longo is a 87 y.o. male. Assessment/Plan Encounter Diagnoses: Problem List Items Addressed This Visit ICD-10-CM Primary osteoarthritis of both knees - Primary M17.0 We reviewed conservative measures for knee OA symptom control. Patient to continue to take Tylenol per package directions, diclofenac gel up to 4 times daily. We reviewed bracing and wrapping for aggravating activities. Reviewed rest and elevation. Continue activity as well as stretching and exercises as tolerated. Reviewed conservative options for symptom control. Plan will be to follow-up here on as needed basis for any returning or new concerns or symptoms. Patient in agreement with plan of care. This note was generated using [employer] software. It may contain errors in wording, punctuation or spelling. Relevant Orders Follow Up In Orthopaedic Surgery documented in this encounter [facility] Work Phone: 03-08-2023 History of Present illness Narrative Follow up from er for elevated BS Having problems with constipation and urinary frequency and urgency Patient presents for periodic surveillance of chronic medical problems. Subjective Aron Longo is a 87 y.o. male who presents for Follow-up. HPI Here with daughter for ER followup . At least a month or worsening urinary incontinence. Glucoses have been high. We Added jardiance about 10 mg a little over a week ago, prior was over 300, today fasting was 167 Had chronic diarrhea, switched from Metformin xr to metfromin, and now he's constipated. Has had pins and needles in his lower legs on Monday. Daughter states no wounds on legs. Dry mouth. Thirsty all the time. Home log reviewed, glucoses appear to be trending down, will leave medicine as is and followup in mid March as scheduled. Review of Systems All other systems reviewed and are negative. . Objective Visit Vitals BP 110/50 Pulse 78 Physical Exam Vitals and nursing note reviewed. Constitutional: General: He is not in acute distress. Appearance: Normal appearance. He is not toxic-appearing. HENT: Head: Normocephalic and atraumatic. Cardiovascular: Rate and Rhythm: Normal rate and regular rhythm. Heart sounds: No murmur heard. Pulmonary: Effort: Pulmonary effort is normal. Breath sounds: Normal breath sounds. Abdominal: Palpations: Abdomen is soft. Musculoskeletal: Cervical back: Neck supple. No rigidity. Comments: Skin: General: Skin is warm and dry. Neurological: General: No focal deficit present. Mental Status: He is alert. Psychiatric: Mood and Affect: Mood normal. Behavior: Behavior normal. Assessment/Plan Problem List Items Addressed This Visit Diabetes mellitus with hyperglycemia, without long-term current use of insulin ([facility]) Other Visit Diagnoses Benign prostatic hyperplasia with urinary frequency - Primary Relevant Orders Referral to Urology Family history of bladder cancer Personal history of bladder cancer Relevant Orders Referral to Urology Other urinary incontinence Relevant Orders Referral to Urology Other constipation Kayla Spivey MD Patient was identified as a fall risk. Risk prevention instructions provided. documented in this encounter [facility] Work Phone: 03-08-2023 Instructions Kayla Spivey MD - 03/08/2023 8:20 AM EST Daily colace 100 mg. Miralax daily as needed. Ways to Help Prevent Falls at Home Quick Tips ? Ask for help if you need it. Most people want to help! ? Get up slowly after sitting or laying down ? Wear a medical alert device or keep cell phone in your pocket ? Use night lights, especially areas near a bathroom ? Keep the items you use often within reach on a small stool or end table ? Use an assistive device such as walker or cane, as directed by provider/physical therapy ? Use a non-slip mat and grab bars in your bathroom. Look for home health sections for best options Other Areas to Focus On ? Exercise and nutrition: Regular exercise or taking a falls prevention class are great ways improve strength and balance. Don t forget to stay hydrated and bring a snack! ? Medicine side effects: Some medicines can make you sleepy or dizzy, which could cause a fall. Ask your healthcare provider about the side effects your medicines could cause. Be sure to let them know if you take any vitamins or supplements as well. ? Tripping hazards: Remove items you could trip on, such as loose mats, rugs, cords, and clutter. Wear closed toe shoes with rubber soles. ? Health and wellness: Get regular checkups with your healthcare provider, plus routine vision and hearing screenings. Talk with your healthcare provider about: o Your medicines and the possible side effects - bring them in a bag if that is easier! o Problems with balance or feeling dizzy o Ways to promote bone health, such as Vitamin D and calcium supplements o Questions or concerns about falling *Ask your healthcare team if you have questions [facility] 2021 documented in this encounter [facility] Work Phone: 02-09-2023 Evaluation + Plan note Associated Problem(s): Musculoskeletal and Injuries We reviewed conservative measures for knee OA symptom control. Patient to continue to take Tylenol per package directions, diclofenac gel up to 4 times daily. We reviewed bracing and wrapping for aggravating activities. Reviewed rest and elevation. Home exercises for knee OA were reviewed and patient encouraged to begin in approximately 1 week and advance as tolerated. Plan will be to follow-up here in approximately 3 months, sooner for changes or concerns. Positive lidocaine suppression with today's injections prior to DC. This note was generated using [employer] software. It may contain errors in wording, punctuation or spelling. [facility] Work Phone: 02-09-2023 Miscellaneous Notes Associated Problem(s): Musculoskeletal and Injuries We reviewed conservative measures for knee OA symptom control. Patient to continue to take Tylenol per package directions, diclofenac gel up to 4 times daily. We reviewed bracing and wrapping for aggravating activities. Reviewed rest and elevation. Home exercises for knee OA were reviewed and patient encouraged to begin in approximately 1 week and advance as tolerated. Plan will be to follow-up here in approximately 3 months, sooner for changes or concerns. Positive lidocaine suppression with today's injections prior to DC. This note was generated using [employer] software. It may contain errors in wording, punctuation or spelling. documented in this encounter [facility] Work Phone: 02-06-2023 History of Present illness Narrative Associated Order(s): L Inj/Asp: L knee Subjective Patient ID: Aron Longo is a 87 y.o. male. Chief Complaint: Pain of the Left Knee Kolby is a pleasant 87-year-old gentleman accompanied by family for evaluation of bilateral knee pain. Patient states the left knee is more symptomatic than the right. Patient states his knee became swollen after working on his car this spring. He has used heat and cold and Biofreeze with minimal symptom patient did experience multiple last year due to a back injury, none recently. Is any recent injury or surgeries. Left Knee Review of Systems Constitutional: Negative. HENT: Negative. Respiratory: Negative. Cardiovascular: Negative. Endocrine: Negative. Musculoskeletal: Positive for arthralgias. Skin: Negative. Neurological: Negative. Hematological: Negative. Psychiatric/Behavioral: Negative. Objective Right Knee Exam Muscle Strength The patient has normal right knee strength. Tenderness Right knee tenderness location: No tenderness on exam. Range of Motion Extension: normal Flexion: 120 Tests Brittnee: Medial - negative Lateral - negative Varus: negative Valgus: negative Drawer: Anterior - negative Posterior - negative Other Erythema: absent Sensation: normal Pulse: present Swelling: none Comments: ROM of distal joints with no sx aggravation distal motor and sensory intact, cap refill at 2 seconds. Left Knee Exam Tenderness The patient is experiencing tenderness in the lateral joint line and medial joint line. Range of Motion Extension: normal Flexion: 110 abnormal Tests Brittnee: Medial - negative Lateral - negative Varus: negative Valgus: negative Drawer: Anterior - negative Posterior - negative Other Erythema: absent Sensation: normal Pulse: present Swelling: mild Comments: Increased pain to medial aspect of the knee with single-leg stand and rotation. Full ROM of distal joints with no sx aggravation distal motor and sensory intact, cap refill at 2 seconds. Image Results: XR knee 3 views bilateral Interpreted By: Lorenzo Head, STUDY: XR KNEE 3 VIEWS BILATERAL; 01/11/2023 8:58 am INDICATION: Signs/Symptoms:bilateral knee pain. COMPARISON: none ACCESSION NUMBER(S): [id number] ORDERING CLINICIAN: KAYLA SPIVEY FINDINGS: Three views bilateral knees. Right knee Mild tricompartment productive degenerative changes. Degenerative changes predominantly involving the medial compartment. No fracture or dislocation. No osseous lesion. Trace effusion. Small quadriceps enthesophyte of the patella. Bipartite patella is noted with some [id number] degenerative changes across the syndesmosis. Left knee Moderate tricompartment productive degenerative changes. No fracture or dislocation. No osseous lesion. Trace effusion. IMPRESSION Mild right and moderate left knee osteoarthrosis. 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 MACRO none Signed by: Lorenzo Head 01/16/2023 10:05 AM Dictation workstation: [id number] Patient ID: Aron Longo is a 87 y.o. male. L Inj/Asp: L knee on 02/06/2023 2:44 PM Indications: pain and joint swelling Details: 22 G needle, ultrasound-guided superolateral approach Medications: 40 mg triamcinolone acetonide 40 mg/mL Outcome: tolerated well, no immediate complications We discussed risk and benefits of cortisone injection, patient wishes to proceed via verbal consent. Skin was prepped with Betadine, Vapocoolant spray and alcohol. Direct visualization using high-frequency linear probe of ultrasound was utilized to administer the injection of 40 mg Kenalog, 3 cc 1% lidocaine and 3 cc of bupivacaine. Patient tolerated injection well lidocaine suppression. Images were saved under MRN number into the PACS system. Procedure, treatment alternatives, risks and benefits explained, specific risks discussed. Consent was given by the patient. Immediately prior to procedure a time out was called to verify the correct patient, procedure, equipment, windows support engineer and site/side marked as required. Patient was prepped and draped in the usual sterile fashion. Assessment/Plan Encounter Diagnoses: Musculoskeletal and Injuries We reviewed conservative measures for knee OA symptom control. Patient to continue to take Tylenol per package directions, diclofenac gel up to 4 times daily. We reviewed bracing and wrapping for aggravating activities. Reviewed rest and elevation. Home exercises for knee OA were reviewed and patient encouraged to begin in approximately 1 week and advance as tolerated. Plan will be to follow-up here in approximately 3 months, sooner for changes or concerns. Positive lidocaine suppression with today's injections prior to DC. This note was generated using [employer] software. It may contain errors in wording, punctuation or spelling. documented in this encounter [facility] Work Phone: 01-06-2023 History of Present illness Narrative Med check;labs Patient presents for periodic surveillance of chronic medical problems. Subjective Aron Longo is a 87 y.o. male who presents for Annual Exam. HPI Bilateral knee pain, taking tylenol, agreeable to imaging and referral Dementia- memory getting worse, on aricept, interested in Namenda Daughter states messing his pills up. Looking into assisted living. Side effects discussed. Diarrhea- has been to GI. On metfromin, recommend switching to xr. HTN, stable CAD, stable Review of Systems All other systems reviewed and are negative. . Objective Visit Vitals BP 136/88 Pulse 72 Physical Exam Vitals and nursing note reviewed. Constitutional: General: He is not in acute distress. Appearance: Normal appearance. He is not toxic-appearing. HENT: Head: Normocephalic and atraumatic. Cardiovascular: Rate and Rhythm: Normal rate and regular rhythm. Heart sounds: No murmur heard. Pulmonary: Effort: Pulmonary effort is normal. Breath sounds: Normal breath sounds. Musculoskeletal: Cervical back: Neck supple. No rigidity. Comments: Skin: General: Skin is warm and dry. Neurological: General: No focal deficit present. Mental Status: He is alert and oriented to person, place, and time. Psychiatric: Mood and Affect: Mood normal. Behavior: Behavior normal. Assessment/Plan Problem List Items Addressed This Visit Chronic diarrhea Coronary arteriosclerosis Diabetes mellitus with hyperglycemia, without long-term current use of insulin (CMS/[facility]) Relevant Medications metFORMIN XR (Glucophage-XR) 500 mg 24 hr tablet Other Relevant Orders Comprehensive Metabolic Panel Hemoglobin A1C Hypertension Other Visit Diagnoses Chronic pain of both knees - Primary Relevant Orders Referral to Orthopaedic Surgery XR knee 4+ views bilateral Need for influenza vaccination Relevant Orders Flu vaccine, quadrivalent, high-dose, preservative free, age 65y+ (FLUZONE) (Completed) Moderate late onset Alzheimer's dementia without behavioral disturbance, psychotic disturbance, mood disturbance, or anxiety (CMS/HCC) Relevant Medications memantine (Namenda Titration Pack) 5-10 mg tablet pack Kayla Spivey MD Patient was identified as a fall risk. Risk prevention instructions provided.Patient was identified as a fall risk. Risk prevention instructions provided. documented in this encounter [facility] Work Phone: 01-06-2023 Instructions Kayla Spivey MD - 01/06/2023 10:20 AM EDT [place] 3-4 mos, labs prior Ways to Help Prevent Falls at Home Quick Tips ? Ask for help if you need it. Most people want to help! ? Get up slowly after sitting or laying down ? Wear a medical alert device or keep cell phone in your pocket ? Use night lights, especially areas near a bathroom ? Keep the items you use often within reach on a small stool or end table ? Use an assistive device such as walker or cane, as directed by provider/physical therapy ? Use a non-slip mat and grab bars in your bathroom. Look for home health sections for best options Other Areas to Focus On ? Exercise and nutrition: Regular exercise or taking a falls prevention class are great ways improve strength and balance. Don t forget to stay hydrated and bring a snack! ? Medicine side effects: Some medicines can make you sleepy or dizzy, which could cause a fall. Ask your healthcare provider about the side effects your medicines could cause. Be sure to let them know if you take any vitamins or supplements as well. ? Tripping hazards: Remove items you could trip on, such as loose mats, rugs, cords, and clutter. Wear closed toe shoes with rubber soles. ? Health and wellness: Get regular checkups with your healthcare provider, plus routine vision and hearing screenings. Talk with your healthcare provider about: o Your medicines and the possible side effects - bring them in a bag if that is easier! o Problems with balance or feeling dizzy o Ways to promote bone health, such as Vitamin D and calcium supplements o Questions or concerns about falling *Ask your healthcare team if you have questions [facility], 2021 Ways to Help Prevent Falls at Home Quick Tips ? Ask for help if you need it. Most people want to help! ? Get up slowly after sitting or laying down ? Wear a medical alert device or keep cell phone in your pocket ? Use night lights, especially areas near a bathroom ? Keep the items you use often within reach on a small stool or end table ? Use an assistive device such as walker or cane, as directed by provider/physical therapy ? Use a non-slip mat and grab bars in your bathroom. Look for home health sections for best options Other Areas to Focus On ? Exercise and nutrition: Regular exercise or taking a falls prevention class are great ways improve strength and balance. Don t forget to stay hydrated and bring a snack! ? Medicine side effects: Some medicines can make you sleepy or dizzy, which could cause a fall. Ask your healthcare provider about the side effects your medicines could cause. Be sure to let them know if you take any vitamins or supplements as well. ? Tripping hazards: Remove items you could trip on, such as loose mats, rugs, cords, and clutter. Wear closed toe shoes with rubber soles. ? Health and wellness: Get regular checkups with your healthcare provider, plus routine vision and hearing screenings. Talk with your healthcare provider about: o Your medicines and the possible side effects - bring them in a bag if that is easier! o Problems with balance or feeling dizzy o Ways to promote bone health, such as Vitamin D and calcium supplements o Questions or concerns about falling *Ask your healthcare team if you have questions [facility] 2021 documented in this encounter [facility] Work Phone: 07-11-2022 History of Present illness Narrative Med check; labs; c/o left knee swelling x 2wks; states was cleaning car and fell down on left knee Patient presents for periodic surveillance of chronic medical problems. Subjective Aron Longo is a 86 y.o. male who presents for Annual Exam, Follow up labs, and Left knee pain. HPI Dm, a1c 8.1, goal 8 or less, improved from previous, no lows HTN, stable Hyperlipidemia, excellent CAD, no symptoms Mild dementia, stable, here with daugther Twisted left knee two weeks ago cleaning out his car, much better now , wants no intervention at this point Has chronic diarrhea, wants observation for now. Review of Systems All other systems reviewed and are negative. . Objective Visit Vitals BP 138/68 Pulse 80 Physical Exam Vitals and nursing note reviewed. Constitutional: General: He is not in acute distress. Appearance: Normal appearance. He is not toxic-appearing. HENT: Head: Normocephalic and atraumatic. Cardiovascular: Rate and Rhythm: Normal rate and regular rhythm. Heart sounds: No murmur heard. Pulmonary: Effort: Pulmonary effort is normal. Breath sounds: Normal breath sounds. Musculoskeletal: Cervical back: Neck supple. No rigidity. Comments: Skin: General: Skin is warm and dry. Neurological: General: No focal deficit present. Mental Status: He is alert. Mental status is at baseline. Psychiatric: Mood and Affect: Mood normal. Behavior: Behavior normal. 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 behavioral disturbance (CMS/HCC) Circulatory Coronary arteriosclerosis Hypertension Digestive Chronic diarrhea Endocrine/Metabolic Diabetes mellitus with hyperglycemia, without long-term current use of insulin (CMS/HCC) Relevant Orders Follow Up In Primary Care Basic Metabolic Panel Hemoglobin A1C Other Hypercholesteremia Other Visit Diagnoses Routine general medical examination at health care facility - Primary Need for vaccination Relevant Orders Pneumococcal conjugate vaccine 20-valent IM Kayla Spivey MD documented in this encounter [facility] Work Phone: 07-11-2022 Instructions Kayla Spivey MD - 07/11/2022 8:00 AM EDT Continue current medications. You were given Prevnar 20 vaccine today. Call concerns. Follow up six months, labs prior. documented in this encounter [facility] Work Phone: documented in this encounter [facility] Work Phone: Evaluation note* Diagnosis Chronic pain of both knees- Primary Type 2 diabetes mellitus with hyperglycemia, without long-term current use of insulin (CMS/HCC) Need for influenza vaccination Need for prophylactic vaccination and inoculation against influenza Moderate late onset Alzheimer's dementia without behavioral disturbance, psychotic disturbance, mood disturbance, or anxiety (CMS/HCC) Chronic diarrhea Diarrhea Primary hypertension Unspecified essential hypertension Coronary arteriosclerosis Coronary atherosclerosis of unspecified type of vessel, [place] or graft documented in this encounter [facility] Work Phone: Evaluation note* Diagnosis Primary osteoarthritis of both knees- Primary Chronic pain of both knees documented in this encounter [facility] Work Phone: Evaluation note* Diagnosis Chronic pain of both knees Moderate late onset Alzheimer's dementia without behavioral disturbance, psychotic disturbance, mood disturbance, or anxiety (CMS/HCC)- Primary documented in this encounter [facility] Work Phone: Evaluation note* Diagnosis Benign prostatic hyperplasia with urinary frequency- Primary Family history of bladder cancer Family history of malignant neoplasm of urinary bladder Personal history of bladder cancer Personal history of malignant neoplasm of bladder Other urinary incontinence Type 2 diabetes mellitus with hyperglycemia, without long-term current use of insulin (CMS/HCC) Other constipation Moderate late onset Alzheimer's dementia without behavioral disturbance, psychotic disturbance, mood disturbance, or anxiety (CMS/HCC)- Primary documented in this encounter [facility] Work Phone: Evaluation note* Diagnosis Primary osteoarthritis of both knees- Primary Moderate late onset Alzheimer's dementia without behavioral disturbance, psychotic disturbance, mood disturbance, or anxiety (CMS/HCC)- Primary documented in this encounter [facility] Work Phone: Evaluation note* Diagnosis Chronic diarrhea- Primary Diarrhea Lower abdominal pain Abdominal pain, other specified site [facility] Lower abdominal pain- Primary Abdominal pain, other specified site Chronic diarrhea Diarrhea Adenomatous polyp of colon, unspecified part of colon Chronic diarrhea Diarrhea Lower abdominal pain Abdominal pain, other specified site [facility] Diagnosis Bleeding external hemorrhoids- Primary External hemorrhoids with other complication Moderate late onset Alzheimer's dementia without behavioral disturbance, psychotic disturbance, mood disturbance, or anxiety (CMS/HCC)- Primary documented in this encounter [facility] Work Phone: Evaluation note* Diagnosis Moderate late onset Alzheimer's dementia without behavioral disturbance, psychotic disturbance, mood disturbance, or anxiety (CMS/HCC)- Primary Malignant neoplasm of urinary bladder, unspecified site (CMS/HCC) Type 2 diabetes mellitus with hyperglycemia, without long-term current use of insulin (CMS/HCC) Primary hypertension Unspecified essential hypertension documented in this encounter [facility] Work Phone: History of Present illness Narrative* Pt presents for periodic surveillance of chronic medical problems, here with his daughter. * Chronic diarrhea, tolerable with dietary modifications * CAD, stable * DM, a1c is 7.4 * Hypertension, good control * Lung nodule, due for fup ct and if stable no further assessment needed * Due for high dose influenza vaccine. * We discussed that at the time it was felt that the benefits of removing his gallbladder did not outweigh the risk, and removing it would lead to daily diarrhea, he verbalized understanding. [facility] Work Phone: History of Present illness Narrative* The patient is being seen for the subsequent annual wellness visit. * Past Medical, Surgical and Family History: reviewed and updated in chart. * Medications and Supplements: Review of all medications by a prescribing practitioner or clinical pharmacist (such as prescriptions, OTCs, herbal therapies and supplements) documented in the medical record. * No, the patient is not using opioids. * Patient Self Assessment of Health Status: good. * Tobacco use: Non-User * Alcohol use: Non-User * Illicit drug use: Non-User * Current diet: well balanced diet. * Exercise Frequency: infrequently. * Depression/Suicide Screening: . * During the past 2 weeks, the patient has not felt down, depressed or hopeless. * During the past 2 weeks, the patient has not felt little interest or pleasure in doing things. * Hearing Impairment: Patient has significant hearing impairment, He uses a hearing aid. * Cognitive Impairment: Cognitive impairment was observed. * Bathing: performs independently. * Dressing: performs independently. * Walking: performs independently. * Managing Finances: needs assistance. * Shopping: needs assistance. * Managing Medications: needs assistance. * Housework / Basic Home Maintenance: needs assistance. * Falls Risk Screening:. ARON has not fallen in the last 6 months. * Home safety risk factors: none. * Advance directives:. Patient has living will. [facility] Work Phone: History of Present illness Narrative* Pt presents virtually with the aid of his daughter . * 3-4 days of body aches, headche, cough, congestion , low grade fevers. States actually feels a little better today. APpetite okay, No shortness of breath. Negative home covid test. [facility] DO Work Phone: Reason for referral (narrative)* Consultation (Routine) - Authorized Specialty Diagnoses / Procedures Referred By Contac t Referred To Contact Primary Care Diagnoses Type 2 diabetes mellitus with hyperglycemia, without long-term current use of insulin ([facility]/HCC) Procedures Follow Up In Primary Care Kayla Spivey MD [address] [place] [address] Referral ID Status Reason Start Date Expiration Date V isits Requested Visits Authorized [id number] Authorized 07/11/2022 01/07/2023 1 1 [facility] Work Phone: Retvpm for referral (narrative)* Consultation (Routine) - Authorized Specialty Diagnoses / Procedures Referred By Contac t Referred To Contact Urology Diagnoses Benign prostatic hyperplasia with urinary frequency Personal history of bladder cancer Other urinary incontinence Kayla Spivey MD [address] [place] [address] Referral ID Status Reason Start Date Expiration Date Visits Requested Visits Authorized [id number] Authorized Specialty Services Required 03/07/2024 1 1 [facility] Work Phone: Recmnf for referral (narrative)* Consultation (Routine) - Authorized Specialty Diagnoses / Procedures Referred By Contac t Referred To Contact Orthopaedic Surgery / Orthopedic Surgery Diagnoses Primary osteoarthritis of both knees Procedures Follow Up In Orthopaedic Surgery Jazz Florence, ACTIVE DIRECTORY SPECIALIST-FURNACE COMBUSTION ANALYST [address] Formerly named [facility], [facility] [address] [place] [address] Referral ID Status Reason Start Date Expiration Date V isits Requested Visits Authorized [id number] Authorized 03/20/2023 03/19/2024 1 1 Electronically signed by Jazz Florence ACTIVE DIRECTORY SPECIALIST-FURNACE COMBUSTION ANALYST at 03/20/2023 8:12 AM [facility] Work Phone: Rejqrv for visit Narrative* Consultation (Routine) - Closed Specialty Diagnoses / Procedures Referred By Contac t Referred To Contact Gastroenterology Diagnoses Functional diarrhea Kayla Spivey MD [address] [place], [place] [phone] Carlos Long MD [facility] [place] [address] Referral ID Status Reason Start Date Expiration Date Visits Re quested Visits Authorized [id number] Closed 03/22/2023 04/04/2024 1 1 [facility] Summary Purpose Family History No Family History Records FoundUnknown Family Member Name Dates Details Family history of hypertensi on(V17.49, Z82.49) Comments:Other Status:Active Family history of coronary a rtery disease(V17.3, Z82.49) Comments:Other Status:Active Family history of hyperchole sterolemia(V18.19, Z83.42) Comments:Other Status:Active Brother Name Dates Details Family history of malignant neoplasm(V16.9, Z80.9) Status:Active Unknown Family Member Name Dates Details Family history of hypertensi on(V17.49, Z82.49) Comments:Other Status:Active Family history of coronary a rtery disease(V17.3, Z82.49) Comments:Other Status:Active Family history of hyperchole sterolemia(V18.19, Z83.42) Comments:Other Status:Active Brother Name Dates Details Family history of malignant neoplasm(V16.9, Z80.9) Status:Active Unknown Family Member Name Dates Details Family history of hypertensi on(V17.49, Z82.49) Comments:Other Status:Active Family history of coronary a rtery disease(V17.3, Z82.49) Comments:Other Status:Active Family history of hyperchole sterolemia(V18.19, Z83.42) Comments:Other Status:Active Brother Name Dates Details Family history of malignant neoplasm(V16.9, Z80.9) Status:Active Unknown Family Member Name Dates Details Family history of hypertensi on(V17.49, Z82.49) Comments:Other Status:Active Family history of coronary a rtery disease(V17.3, Z82.49) Comments:Other Status:Active Family history of hyperchole sterolemia(V18.19, Z83.42) Comments:Other Status:Active Brother Name Dates Details Family history of malignant neoplasm(V16.9, Z80.9) Status:Active Unknown Family Member Name Dates Details Family history of hypertensi on(V17.49, Z82.49) Comments:Other Status:Active Family history of coronary a rtery disease(V17.3, Z82.49) Comments:Other Status:Active Family history of hyperchole sterolemia(V18.19, Z83.42) Comments:Other Status:Active Brother Name Dates Details Family history of malignant neoplasm(V16.9, Z80.9) Status:Active Unknown Family Member Name Dates Details Family history of hypertensi on(V17.49, Z82.49) Comments:Other Status:Active Family history of coronary a rtery disease(V17.3, Z82.49) Comments:Other Status:Active Family history of hyperchole sterolemia(V18.19, Z83.42) Comments:Other Status:Active Brother Name Dates Details Family history of malignant neoplasm(V16.9, Z80.9) Status:Active Unknown Family Member Name Dates Details Family history of hypertensi on: Other(V17.49, Z82.49) Status:Active Family history of coronary a rtery disease: Other(V17.3, Z82.49) Status:Active Family history of hyperchole sterolemia: Other(V18.19, Z83.42) Status:Active Family history of malignant neoplasm: Brother(V16.9, Z80.9) Status:Active Unknown Family Member Name Dates Details Family history of hypertensi on: Other(V17.49, Z82.49) Status:Active Family history of coronary a rtery disease: Other(V17.3, Z82.49) Status:Active Family history of hyperchole sterolemia: Other(V18.19, Z83.42) Status:Active Family history of malignant neoplasm: Brother(V16.9, Z80.9) Status:Active Unknown Family Member Name Dates Details Family history of hypertensi on: Other(V17.49, Z82.49) Status:Active Family history of coronary a rtery disease: Other(V17.3, Z82.49) Status:Active Family history of hyperchole sterolemia: Other(V18.19, Z83.42) Status:Active Family history of malignant neoplasm: Brother(V16.9, Z80.9) Status:Active Unknown Family Member Name Dates Details Family history of hypertensi on: Other(V17.49, Z82.49) Status:Active Family history of coronary a rtery disease: Other(V17.3, Z82.49) Status:Active Family history of hyperchole sterolemia: Other(V18.19, Z83.42) Status:Active Family history of malignant neoplasm: Brother(V16.9, Z80.9) Status:Active Unknown Family Member Name Dates Details Family history of hypertensi on: Other(V17.49, Z82.49) Status:Active Family history of coronary a rtery disease: Other(V17.3, Z82.49) Status:Active Family history of hyperchole sterolemia: Other(V18.19, Z83.42) Status:Active Family history of malignant neoplasm: Brother(V16.9, Z80.9) Status:Active Unknown Family Member Name Dates Details Family history of hypertensi on: Other(V17.49, Z82.49) Status:Active Family history of coronary a rtery disease: Other(V17.3, Z82.49) Status:Active Family history of hyperchole sterolemia: Other(V18.19, Z83.42) Status:Active Family history of malignant neoplasm: Brother(V16.9, Z80.9) Status:Active Unknown Family Member Name Dates Details Family history of hypertensi on: Other(V17.49, Z82.49) Status:Active Family history of coronary a rtery disease: Other(V17.3, Z82.49) Status:Active Family history of hyperchole sterolemia: Other(V18.19, Z83.42) Status:Active Family history of malignant neoplasm: Brother(V16.9, Z80.9) Status:Active Unknown Family Member Name Dates Details Family history of hypertensi on: Other(V17.49, Z82.49) Status:Active Family history of coronary a rtery disease: Other(V17.3, Z82.49) Status:Active Family history of hyperchole sterolemia: Other(V18.19, Z83.42) Status:Active Family history of malignant neoplasm: Brother(V16.9, Z80.9) Status:Active Unknown Family Member Name Dates Details Family history of hypertensi on: Other(V17.49, Z82.49) Status:Active Family history of coronary a rtery disease: Other(V17.3, Z82.49) Status:Active Family history of hyperchole sterolemia: Other(V18.19, Z83.42) Status:Active Family history of malignant neoplasm: Brother(V16.9, Z80.9) Status:Active Unknown Family Member Name Dates Details Family history of hypertensi on: Other(V17.49, Z82.49) Status:Active Family history of coronary a rtery disease: Other(V17.3, Z82.49) Status:Active Family history of hyperchole sterolemia: Other(V18.19, Z83.42) Status:Active Family history of malignant neoplasm: Brother(V16.9, Z80.9) Status:Active Unknown Family Member Name Dates Details Family history of malignant neoplasm: Brother(V16.9, Z80.9) Status:Active Family history of hyperchole sterolemia: Other(V18.19, Z83.42) Status:Active Family history of coronary a rtery disease: Other(V17.3, Z82.49) Status:Active Family history of hypertensi on: Other(V17.49, Z82.49) Status:Active Unknown Family Member Name Dates Details Family history of hypertensi on: Other(V17.49, Z82.49) Status:Active Family history of coronary a rtery disease: Other(V17.3, Z82.49) Status:Active Family history of hyperchole sterolemia: Other(V18.19, Z83.42) Status:Active Family history of malignant neoplasm: Brother(V16.9, Z80.9) Status:Active Unknown Family Member Name Dates Details Family history of hypertensi on: Other(V17.49, Z82.49) Status:Active Family history of coronary a rtery disease: Other(V17.3, Z82.49) Status:Active Family history of hyperchole sterolemia: Other(V18.19, Z83.42) Status:Active Family history of malignant neoplasm: Brother(V16.9, Z80.9) Status:Active Unknown Family Member Name Dates Details Family history of hypertensi on: Other(V17.49, Z82.49) Status:Active Family history of coronary a rtery disease: Other(V17.3, Z82.49) Status:Active Family history of hyperchole sterolemia: Other(V18.19, Z83.42) Status:Active Family history of malignant neoplasm: Brother(V16.9, Z80.9) Status:Active Unknown Family Member Name Dates Details Family history of malignant neoplasm: Brother(V16.9, Z80.9) Status:Active Family history of hyperchole sterolemia: Other(V18.19, Z83.42) Status:Active Family history of coronary a rtery disease: Other(V17.3, Z82.49) Status:Active Family history of hypertensi on: Other(V17.49, Z82.49) Status:Active Unknown Family Member Name Dates Details Family history of hypertensi on: Other(V17.49, Z82.49) Status:Active Family history of coronary a rtery disease: Other(V17.3, Z82.49) Status:Active Family history of hyperchole sterolemia: Other(V18.19, Z83.42) Status:Active Family history of malignant neoplasm: Brother(V16.9, Z80.9) Status:Active Advance Directives No Advanced Directives Records FoundDocuments on File Type Date Recorded Patient [employer] Supervisor Expl anation Advance Directives and Living Will Latest Code Status on File Code Status Date Activated Date Inactivated Comments Full Code 06/17/2014 7:56 AM 06/17/2014 2:11 PM Latest Code Status on File Code Status Date Activated Date Inactivated Comments Full Code 06/17/2014 7:56 AM 06/17/2014 2:11 PM Latest Code Status on File Code Status Date Activated Date Inactivated Comments Full Code 06/17/2014 7:56 AM 06/17/2014 2:11 PM Chief Complaint Chief Complaint: ARON LONGO is here with a chief complaint of 6 month check with labs. Stomach is still bothering him, surgeon wouldn't do surgery on gallbladder .Chief Complaint: ARON LONGO is here with a chief complaint of scratchy throat, cough, aches, running nose, a lot of phlegm. Started Saturday. Reason for Referral Specialty Diagnoses / Procedures Referred By Contac t Referred To Contact Radiology Diagnoses Chronic pain of both knees Procedures XR knee 4+ views bilateral Kayla Spivey MD [address] [place] [id number] Referral ID Status Reason Start Date Expiration Date Visits Requested Visits Authorized [id number] Authorized Perform Procedure 01/06/2023 07/05/2023 1 1 Specialty Diagnoses / Procedures Referred By Contac t Referred To Contact Orthopaedic Surgery / Orthopedic Surgery Diagnoses Chronic pain of both knees Kayla Spivey MD [address] [place] [phone] Referral ID Status Reason Start Date Expiration Date Visits Requested Visits Authorized [id number] Pending Review Specialty Services Required 01/06/2023 07/05/2023 1 1 Specialty Diagnoses / Procedures Referred By Contac t Referred To Contact Orthopaedic Surgery / Orthopedic Surgery Diagnoses Primary osteoarthritis of both knees Procedures L Inj/Asp: L knee Jazz Florence, ACTIVE DIRECTORY SPECIALIST-FURNACE COMBUSTION ANALYST [address] [place] [facility] [address] [place] [address] Referral ID Status Reason Start Date Expiration Date V isits Requested Visits Authorized [id number] Pending Review 02/06/2023 02/06/2024 1 1 Additional Source Comments (unrecognized sect ion and content) No Status Records FoundNo Status Records FoundNo Status Records FoundNo Status Records FoundNo Status Records FoundNo Status Records FoundNo Status Records FoundNo Status Records FoundNo Status Records FoundNo Status Records FoundNo Status Records Found INFORMATION SOURCE (unrecogn ized section and content) DATE CREATED AUTHOR AUTHOR'S ORGANIZ ATION 11/18/2018 [facility] DATE CREATED AUTHOR AUTHOR'S ORGANIZ ATION 01/11/2022 [facility] DATE CREATED AUTHOR AUTHOR'S ORGANIZ ATION 01/11/2023 [facility] DATE CREATED AUTHOR AUTHOR'S ORGANIZ ATION 01/11/2023 [facility] DATE CREATED AUTHOR AUTHOR'S ORGANIZ ATION 03/31/2023 [facility] DATE CREATED AUTHOR AUTHOR'S ORGANIZ ATION 04/01/2023 [facility] DATE CREATED AUTHOR AUTHOR'S ORGANIZ ATION 04/16/2023 [facility] DATE CREATED AUTHOR AUTHOR'S ORGANIZ ATION 04/17/2023 [facility] DATE CREATED AUTHOR AUTHOR'S ORGANIZ ATION 04/19/2023 [facility] DATE CREATED AUTHOR AUTHOR'S ORGANIZ ATION 05/04/2023 [facility] Reason for Visit (unrecogniz ed section and content) Reason Comments Annual Exam Specialty Diagnoses / Procedures Referred By Contac t Referred To Contact Primary Care Diagnoses Type 2 diabetes mellitus with hyperglycemia, without long-term current use of insulin ([facility]) Procedures Follow Up In Primary Care Kayla Spivey MD [address] [facility] [place] [address] Referral ID Status Reason Start Date Expiration Date V isits Requested Visits Authorized [id number] Authorized 07/11/2022 01/07/2023 1 1 Reason Comments Pain Specialty Diagnoses / Procedures Referred By Contac t Referred To Contact Orthopaedic Surgery / Orthopedic Surgery Diagnoses Chronic pain of both knees Kayla Spivey MD [address] [place] [address] Referral ID Status Reason Start Date Expiration Date Visits Requested Visits Authorized [id number] Pending Review Specialty Services Required 01/06/2023 07/05/2023 1 1 Specialty Diagnoses / Procedures Referred By Contac t Referred To Contact Radiology Diagnoses Chronic pain of both knees Procedures XR knee 3 views bilateral XR knee 4+ views bilateral Kayla Spivey MD [address] [place] [address] Referral ID Status Reason Start Date Expiration Date Visits Requested Visits Authorized [id number] Pending Review Perform Procedure 01/06/2023 07/05/2023 1 1 Reason Comments Follow-up Reason Comments Follow-up Patient had injectio n on 02/09/2023. Reason Comments Rectal Bleeding Pt is c/o rectal ble eding. Pt has bright red blood, Pt stated he might have hemorrhoids. Care Teams (unrecognized sec tion and content) Overhead Line Worker Relationship Specialty Start Date End Date Kayla Spivey MD [address] [place] [address] PCP - [employer] ACO Attributed Provider 04/10/21 Kayla Spivey MD [address] [place] [address] PCP - [employer] ACO PCP 04/10/21 Kayla Spivey MD [address] [place] [phone] PCP - General Family Medicine 07/11/22 Overhead Line Worker Relationship Specialty Start Date End Date Kayla Spivey MD [address] [place], [place] [phone] PCP - [employer] ACO Attributed Provider 04/10/21 Kayla Spivey MD [address] [place] [phone] PCP - [employer] ACO PCP 04/10/21 Kayla Spivey MD [address] [place] [address] PCP - General Family Medicine 07/11/22 Overhead Line Worker Relationship Specialty Start Date End Date Kayla Spivey MD [address] [place] [address] PCP - MSS[employer] ACO Attributed Provider 04/10/21 Kayla Spivey MD [address] [facility] [place] [address] PCP - [employer] ACO PCP 04/10/21 Kayla Spivey MD [address] [facility] [place] [phone] PCP - General Family Medicine 07/11/22 Overhead Line Worker Relationship Specialty Start Date End Date Kayla Spivey MD [address] [place] [phone] PCP - [employer] ACO Attributed Provider 04/10/[address] [place] [address] PCP - [employer] ACO PCP 04/10/21 Kayla Spivey MD [address] [place] [phone] PCP - General Family Medicine 07/11/22 Overhead Line Worker Relationship Specialty Start Date End Date Kayla Spivey MD [address] [place] [phone] PCP - MSS[employer] ACO Attributed Provider 04/10/21 Kayla Spivey MD [place] [address] PCP - [employer] ACO PCP 04/10/21 Kayla Spivey MD [address] [place] [phone] PCP - General Family Medicine 07/11/22 Overhead Line Worker Relationship Specialty Start Date End Date Kayla Spivey MD [address] [place], [place] [phone] PCP - General Family Medicine 06/11/14 Overhead Line Worker Relationship Specialty Start Date End Date Kayla Spivey MD [address] [place], [place] [phone] PCP - General Family Medicine 06/11/14 Overhead Line Worker Relationship Specialty Start Date End Date Kayla Spivey MD [address] [place] [address] PCP - MSSP ACO Attributed Provider 04/10/21 Kayla Spivey MD [address] [place], [place] [phone] PCP - [employer] ACO PCP 04/10/21 Kayla Spivey MD [address] [place], [place] [phone] PCP - General Family Medicine 07/11/22 Overhead Line Worker Relationship Specialty Start Date End Date Kayla Spivey MD [address] [place] [id number] PCP - MSSP ACO Attributed Provider 04/10/21 Kayla Spivey MD [address] [place] [address] [place] [phone] PCP - Radha FORDO PCP 04/10/21 Kayla Spivey MD [address] [place] [address] [place] [address] PCP - General Family Medicine 07/11/22 Scheduled Active and Recently Administ ered Medications (unrecognized section and content) FOR RECORDS PERTAINING TO PATIENTS WHO ARE OR HAVE BEEN ENROLLED IN A CHEMICAL DEPENDENCY/SUBSTANCEABUSE PROGRAM, SOME INFORMATION MAY BE OMITTED. This clinical summary was aggregated from multiple sources. Caution should be exercised in using it in the provision of clinical care. This summary normalizes information from multiple sources, and as a consequence, information in this document may materially change the coding, format and clinical context of patient data. In addition, data may be omitted in some cases. CLINICAL DECISIONS SHOULD BE BASED ON THE PRIMARY CLINICAL RECORDS. [employer] provides no warranty or guarantee of the accuracy or completeness of information in this document.
[2023-05-17] VITALS (10 sets, daily range): BP systolic 147–197; BP diastolic 65–85; PULSE 67–94; RESP 12–18; TEMP 36.2–36.8; O2SAT 98–100; BMI 21.4
[2023-05-17] MEDS: Lactated Ringers 1,000 ML 15 ML IV (11:08)
[2023-05-17 11:22] LABS: Bedside Glucose 111 mg/dL (74-106)
--- NOTE | 2023-05-17 12:26 | PCM.HP.STD ---
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 History of steroid therapy History of stress test Hypertension Loose, teeth Wears glasses Home Medications aspirin 81 mg capsule 81 mg PO DAILY HEART HEALTH 05/08/23 [History Last Taken 05/07/23] candesartan 32 mg tablet (Atacand) 32 mg PO DAILY HTN 05/08/23 [History Last Taken 05/17/23] donepezil 10 mg tablet 10 mg PO QHS DEMENTIA 05/08/23 [History Last Taken 05/16/23] empagliflozin 25 mg tablet (Jardiance) 25 mg PO DAILY DM 05/08/23 [History Last Taken 05/16/23] escitalopram oxalate 5 mg tablet (Lexapro) 5 mg PO QHS ANXIETY 05/08/23 [History Last Taken 05/16/23] [id number]-[id number] 40,000-126,000-168,000 unit capsule, delay rel (Zenpep) 2 cap PO .WITH MEALS CHRONIC DIARRHEA 05/08/23 [History Last Taken 05/16/23] memantine 10 mg tablet 10 mg PO BID DEMENTIA 05/08/23 [History Last Taken 05/16/23] metformin 500 mg tablet,extended release 24 hr 500 mg PO BID 05/08/23 [History Last Taken 05/16/23] metoprolol tartrate 50 mg tablet 75 mg PO BID HTN 05/08/23 [History Last Taken 05/17/23] multivitamin 1 tab PO DAILY 05/08/23 [History Last Taken 05/16/23] simvastatin 20 mg tablet 20 mg PO QHS 05/08/23 [History Last Taken 05/16/23] tamsulosin 0.4 mg capsule (Flomax) 0.4 mg PO QHS 05/08/23 [History Last Taken 05/16/23] Allergy/AdvReac Type Severity Reaction Status Date / Time No Known Allergies Allergy Verified 05/17/23 11:01 Surgical History History of appendectomy History of bladder surgery History of cardiac catheterization History of colonoscopy History of coronary artery stent placement Social History Smoking Status: Former smoker Vital Signs Vital Signs Vital Signs: 05/17/23 11:03 05/17/23 11:03 Temperature 97.8 F Temperature Source Temporal Pulse Rate 67 Respiratory Rate 16 Respiratory Pattern Normal Blood Pressure 158/65 H Blood Pressure Mean 96 Blood Pressure Source Monitor Blood Pressure Position Semi-Fowlers Blood Pressure Location Left Arm Pulse Ox 100 Oxygen Delivery Method Room Air Weight Weight: 66 kg Body Mass Index (BMI) 21.4 Results Lab / Micro Data 05/11/23 10:20 05/11/23 10:20 Labs: Laboratory Results - last 24 hr 05/17/23 11:03: POC Glucose 111 H
--- NOTE | 2023-05-17 12:40 | PROS_PTH ---
PATHOLOGY RESULTS PATIENT: YANG LONGO LOC: [facility] [place] U#:[id number] AGE/SX: 87/M ROOM: RE05/17/[address]: Dr. Chico Zavaleta MD : [id number] BED: DIS: 05/18/2023 SPEC #: [id number] RECD: 05/18/23 07:35 STATUS: RAN NGUYEN #: [id number] ANNAMARIE: 05/17/23 12:[address]: Chico Zavaleta DEPT: SURGICAL PATHOLOGY RECD BY: Alba Srivastava ENTERED: 05/18/23 07:35 SP TYPE: TURP OTHR DR: MD Dr. Tessy Galvan MD Tissues: Prostate, NOS Procedures: Surgery Specimen Level IV HEADER OPERATION: Cysto, transurethral resection prostate PRE-OP DIAGNOSIS: Benign prostate hypertrophy and urine retention TISSUE SUBMITTED: Prostate chips MICROSCOPIC DIAGNOSIS Prostate, transurethral resection: Benign nodular hyperplasia, glandular and stromal types. Mild chronic inflammation. AM:april 05/19/2023 MICROSCOPIC DESCRIPTION Slides are reviewed. GROSS DESCRIPTION Received is one container labeled with the patient's name and designated prostate chips. The specimen consists of multiple irregular fragments of pink-manzo, rubbery, soft tissue that in aggregate weigh 3.9 gm and measure in aggregate 5.0 x 4.0 x 0.6 cm. Sewer Line Photo Inspector portions are submitted in four cassettes. / AM:april 05/18/2023 TC:3 CPT: 95262
[2023-05-17] MEDS: Cefazolin 2 GM in 0.9% Normal Saline (100mL Bag) 100 ML IV (13:00)
--- NOTE | 2023-05-17 14:13 | OP.PCM_ITS ---
Report of Operation Date of Procedure: 05/17/23 Pre-Operative Diagnosis: BPH with obstruction Post-Operative Diagnosis: The same Surgery/Procedure Performed:: Transurethral section of prostate Description of Surgical Findings:: Patient was taken back to the operating room at this with induction of anesthesia he was placed in dorsolithotomy position. The penis and testicles were prepped and draped in usual sterile fashion in the bladder with a 21 Brazilian rigid cystourethroscope the entire length the urethra was free of any scar tissue or trauma sphincter was intact verumontanum was identified he had bilateral hypertrophy and had a median lobe I looked inside the bladder he does have a trabeculated stretched out bladder no stones or tumors seen within the bladder I then removed the scope I then put in a 24 Brazilian noncontinuous flow bipolar Olympus scope and then proceeded with resection I resected the median lobe resected back to the verumontanum I resected the right lobe of the prostate resect the left lobe of prostate very carefully resected the apical tissue I then switched over to the button smooth out the resection we did a flow test had a nice good flow sphincter was intact I then cauterized for hemostasis and then we placed a 22 Brazilian catheter in the bladder with continuous irrigation he will be kept overnight, will plan to remove the catheter tomorrow morning for voiding trial surgery went well sphincter was intact minimal blood loss. Sent off the tissue that we resected. Surgeon: Chico Zavaleta Type of Anesthesia: General Drains: 22fr 3 way Admit VTE Documentation VTE Present on Admission: No VTE Mechan Device Prophylaxis: SCD's VTE Pharm Prophylaxis ordered?: No
--- NOTE | 2023-05-17 14:13 | DCINST_ITS ---
Discharge Instructions Diet Discharge Diet: No restrictions Activity Discharge Activity: Return to Normal Activity and May Not Drive (while taking narcotic pain medications.) Dressing / Incision Call your doctor if you observe: Fever of 101 or Higher Follow Up Care Please Follow Up With: Chico Zavaleta MD When: Call [phone] for an appointment Test Results: Test results from this visit will be discussed in further detail at your follow- up appointment, if applicable. Discharge Plan Admission Primary Reason for Your Visit: Transurethral section of prostate Attending Provider: Chico Zavaleta Primary Care Provider: Tessy Babin Consulting Providers: Liborio Berkowitz Discharge Orders/Prescriptions Prescriptions: New ciprofloxacin HCl [Cipro] 500 mg tablet 500 mg PO BID Qty: 10 0RF Continued candesartan [Atacand] 32 mg tablet 32 mg PO DAILY metformin 500 mg tablet extended release 24 hr 500 mg PO BID Jardiance 25 mg tablet 25 mg PO DAILY metoprolol tartrate 50 mg tablet 75 mg PO BID simvastatin 20 mg tablet 20 mg PO QHS tamsulosin [Flomax] 0.4 mg capsule 0.4 mg PO QHS donepezil 10 mg tablet 10 mg PO QHS memantine 10 mg tablet 10 mg PO BID multivitamin Tablet 1 tab PO DAILY escitalopram oxalate [Lexapro] 5 mg tablet 5 mg PO QHS Zenpep 40,000-126,000- 168,000 unit capsule,delayed release(DR/EC) 2 cap PO .WITH MEALS Rx Instructions: administer with meals and/or snacks Held aspirin 81 mg capsule 81 mg PO DAILY Hold Instructions: Resume on 05/31/23. Rx Instructions: LST DOSE 05/07/23 FOR SURGERY ON 05/17/23 Other Ambulatory Orders: 12 Lead EKG (Routine) Timeframe: [id number] Location: None Selected Ordered By: Dr. Liborio Berkowitz Referrals / Follow Up: Chico Zavaleta MD [Med Staff - Active Staff] - Disposition Disposition (needs filled in before D/C Order can be placed): Home, Self Care
[2023-05-17 14:57] LABS: Bedside Glucose 106 mg/dL (74-106)
[2023-05-17] MEDS: metFORMIN (XR) 500 MG Tablet PO (16:58)
[2023-05-17 17:17] LABS: Bedside Glucose 162 mg/dL (74-106)
[2023-05-17] MEDS: Creon 24,000 unit DR Capsule 3 CAP PO (18:26)
[2023-05-17] MEDS: Metoprolol Tartrate 50 MG Tablet 75 MG PO (18:27)
[2023-05-17] MEDS: 0.9% Normal Saline (1000mL) 1,000 ML 125 ML IV (19:59)
[2023-05-17] MEDS: Ciprofloxacin 400 MG/200 ML BAG 200 MG IV (22:11)
[2023-05-17] MEDS: Tamsulosin HCl 0.4 MG Capsule 0.400000000000000022 MG PO (22:18)
[2023-05-17] MEDS: Escitalopram Oxalate 10 MG Tablet 5 MG PO (22:18)
[2023-05-17] MEDS: Docusate Sodium 100 MG Capsule 200 MG PO (22:18)
[2023-05-17] MEDS: Donepezil HCl 10 MG Tablet PO (22:18)
[2023-05-17] MEDS: Atorvastatin Calcium 10 MG Tablet PO (22:19)
[2023-05-17] MEDS: Memantine Hydrochloride 10 MG Tablet PO (22:19)
[2023-05-18 00:22] VITALS: BP 137/45; PULSE 68; RESP 18; TEMP 36.5; O2SAT 96
[2023-05-18] MEDS: 0.9% Saline Lock 10 ML Syringe IV (03:35)
[2023-05-18] MEDS: 0.9% Normal Saline (1000mL) 1,000 ML 125 ML IV (03:37)
[2023-05-18 04:10] VITALS: BP 121/55; PULSE 62; RESP 16; TEMP 36.5; O2SAT 100
--- NOTE | 2023-05-18 07:34 | PN.URO_ITS ---
Subjective Subjective s/p turp doing well d/c [facility] today Objective Data Objective Data Vital Signs: Vital Signs Temp Pulse Resp BP Pulse Ox O2 Del Method 97.7 F L 62 16 121/55 H 100 Room Air 05/18/23 04:10 05/18/23 04:10 05/18/23 04:10 05/18/23 04:10 05/18/23 04:10 05/18/23 04:10 Oxygen Delivery Method Room Air Weight: 66 kg Body Mass Index (BMI) 21.4 Intake & Output: Intake and Output for Last 24 Hours 05/16/23 05/17/23 05/18/23 23:59 23:59 23:59 Intake Total 1660 / 1660 1954.17 / 1954.17 Output Total 2900 / 2900 1900 / 1900 Balance -1240 / -1240 54.17 / 54.17 Lab / Micro Data 05/11/23 10:20 05/11/23 10:20 Labs: Laboratory Results - last 24 hr 05/17/23 11:03: POC Glucose 111 H 05/17/23 14:38: POC Glucose 106 05/17/23 16:57: POC Glucose 162 H
[2023-05-18 08:43] VITALS: BP 149/63; PULSE 55; RESP 16; TEMP 36.8; O2SAT 100
[2023-05-18] MEDS: Creon 24,000 unit DR Capsule 3 CAP PO ×2 (08:47→13:16)
[2023-05-18] MEDS: Multivitamins,Therapeutic Tablet 1 TABLET PO (08:47)
[2023-05-18] MEDS: metFORMIN (XR) 500 MG Tablet PO (08:47)
[2023-05-18] MEDS: Ciprofloxacin 400 MG/200 ML BAG 200 MG IV (09:10)
[2023-05-18] MEDS: Docusate Sodium 100 MG Capsule 200 MG PO (09:18)
[2023-05-18] MEDS: Empagliflozin 25 MG Tablet PO (09:18)
[2023-05-18] MEDS: Memantine Hydrochloride 10 MG Tablet PO (09:18)
[2023-05-18] MEDS: Losartan Potassium 100 MG Tablet PO (09:18)
--- NOTE | 2023-05-18 10:08 | CASEMGMT ---
Patient has order for discharge today. RN CM in to discuss needs at discharge. Patient denies needs or help at discharge. Patient had no further questions or concerns.
--- NOTE | 2023-05-18 10:23 | CASEMGMT ---
ADVANCED DIRECTIVE VALIDATION Noted in chart patient identified daughter Gretcehn Paiz is patient's [facility]. Chart reviewed and no documents on file. Met with patient to discuss and verify advanced directives. Patient reports the daughter, Gretchen, helps with patient's medications and has someone to come in and clean the home. Educated patient this underwriter mortgage loan is asking about paperwork patient may have completed identifying who can make medical decisions for patient if patient is unable to make own decisions. Patient denies ever doing such forms, but reports has taken steps to have son and daughter both put on the deed to patient's home. Patient also reports has a grave site already paid for too. This underwriter mortgage loan offered to bring information back to patient on what advanced directives are, and educated this underwriter mortgage loan can help complete today or schedule an outpatient appointment. Patient declined wanting any information on advanced directives. Educated patient that without advanced directives in place, decision making would go to both children (patient is a of 20 years per patient's report). VALIDATION OUTCOME: per the patient, there are no formal advanced directives in place; only that children are involved and provide support to the patient. -MERA Carcamo
--- NOTE | 2023-05-18 11:32 | PHA.DC_ITS ---
Pharmacy [facility] has performed discharge medication reconciliation and counseling for this patient. The patient's discharge medication list was reviewed for discrepancies and discrepancies were resolved. The patient was counseled on the following discharge medications and changes in medications for homegoing were reviewed. 1. CIPRO The Reason for Use, instructions for use, and potential side effects were reviewed for all new medications. The patient's questions regarding all of their medications were answered. The patient demonstrated some understanding but would benefit from further education and reinforcement. Medications at Discharge Home Medications aspirin 81 mg capsule 81 mg PO DAILY HEART HEALTH 05/08/23 candesartan 32 mg tablet (Atacand) 32 mg PO DAILY HTN 05/08/23 donepezil 10 mg tablet 10 mg PO QHS DEMENTIA 05/08/23 empagliflozin 25 mg tablet (Jardiance) 25 mg PO DAILY DM 05/08/23 escitalopram oxalate 5 mg tablet (Lexapro) 5 mg PO QHS ANXIETY 05/08/23 [id number] 40,000-126,000-168,000 unit capsule, delay rel (Zenpep) 2 cap PO .WITH MEALS CHRONIC DIARRHEA 05/08/23 memantine 10 mg tablet 10 mg PO BID DEMENTIA 05/08/23 metformin 500 mg tablet,extended release 24 hr 500 mg PO BID 05/08/23 metoprolol tartrate 50 mg tablet 75 mg PO BID HTN 05/08/23 multivitamin 1 tab PO DAILY 05/08/23 simvastatin 20 mg tablet 20 mg PO QHS 05/08/23 tamsulosin 0.4 mg capsule (Flomax) 0.4 mg PO QHS 05/08/23 ciprofloxacin HCl 500 mg tablet (Cipro) 500 mg PO BID #10 tabs 05/17/23
== END 2023-05-18 14:44 | disposition home or self-care (01) ==
LOC: SDC 10:48 → AC 10:48 → MS3 05-30 11:06
PROVIDERS: Anesthesiology; PCP Family Medicine; Referring Provider Urology; Visit Provider Urology
PROC: 0VT08ZZ Resection of Prostate, Via Natural or Artificial Opening Endoscopic (ICD-10-PCS; CPT 52601; principal; 2023-05-17 12:30)
DX: N41.9 Inflammatory disease of prostate, unspecified (principal); F03.90 Unspecified dementia, unspecified severity, without behavioral disturbance, psychotic disturbance, mood disturbance, and anxiety; E11.9 Type 2 diabetes mellitus without complications; N40.0 Benign prostatic hyperplasia without lower urinary tract symptoms; E78.00 Pure hypercholesterolemia, unspecified; I10 Essential (primary) hypertension; F41.9 Anxiety disorder, unspecified; Z79.82 Long term (current) use of aspirin; Z79.899 Other long term (current) drug therapy; Z79.84 Long term (current) use of oral hypoglycemic drugs; Z87.891 Personal history of nicotine dependence; Z95.5 Presence of coronary angioplasty implant and graft
CPT/HCPCS: 52601; 00914; 36415; 80048; 82962; 83036; 85027; 88305; 93005; J7030; J7120; A4216; J0744; J2405